=== PATIENT | female | born 1965 | race African-American/Black ===

== ENCOUNTER → 2016-07-05 | Outpatient (CLI) | payer OTHER ==
--- NOTE | 2016-07-05 11:13 | XR ---
Right shoulder HISTORY: Pain, limited range of motion 3 views of the right shoulder correlated to prior exam April 2016 Bone mineralization, joint spaces and alignment are stable, there is loss of joint space at the gleno humeral joint with marginal spurring, hypertrophic change. Right lung apex as visualized is normal. IMPRESSION: Osteoarthritic changes are suspected.
--- NOTE | 2016-07-05 11:15 | XR ---
Left knee HISTORY: Meniscus tear, pain 3 views of the left knee Comparison to prior left knee 21 January 2015 Bone mineralization, joint spaces and alignment are stable. Marginal hypertrophic change especially a t the patellofemoral joint. Joint effusion may be improved. Soft tissue calcifications may be vascula r. IMPRESSION: Stable exam, no acute abnormality. Suspect osteoarthritis.
== END ==
LOC: RADXRMAIN 10:05
PROVIDERS: ATTEND Physical Medicine & Rehabilitation
DX: M25.511 Pain in right shoulder (principal); M25.562 Pain in left knee

== ENCOUNTER 2019-01-23 17:44 | Emergency (ER) | payer OTHER ==
[2019-01-23] MEDS ORDERED: ACETAMINOPHEN TAB 500 MG TAB PO STA (18:09)
--- NOTE | 2019-01-23 18:13 | ED ---
Psych HPI - General Source: patient <Ekta Saavedra - Last Filed: 01/23/19 18:35> <Jacob Eng - Last Filed: 01/24/19 05:39> <Javi Da Silva - Last Filed: 01/29/19 17:00> - General Chief Complaint: Psychiatric Symptoms Stated Complaint: EPS eval Time Seen by Provider: 01/23/19 17:58 - History of Present Illness Initial Comments: 53-year-old female patient presents to the emergency department today for evaluation of suicidal ideation. Patient states that she has a history of depression. States that her mother in June and she has been hav ing a difficult time since. States that recently she has been feeling very depressed and crying frequently. Patient states that she has been having thoughts of killing herself. She states her plan is to take pills and go to sleep. Patient denies any recurrent alcohol use. States she did snort cocaine a couple of days ago. Patient states she does have a history of attempted suicide approximately 4 years ago she took an overdose of medication. States she has been inpatient at [facility] mental health. Patient states she is currently taking her antidepressants as prescribed. States she has not had a dose change in the last two years. States she does have a sore throat for the last couple of days. Denies nasal congestion or drainage. Denies cough. States her urine has been dark. Denies any dysuria or urinary frequency. Patient denies any recent rash, shortness breath, chest pain, abdominal pain, nausea, vomiting, diarrhea, constipation, back pain, numbness, tingling, dizziness, weakness, headache, visual changes, or any other complaints. (Ekta Saavedra) - Related Data Home Medications Medication Instructions Recorded Confirmed Albuterol Inhaler [Ventolin 1 - 2 puff INHALATION RT-QID PRN 01/21/15 01/23/19 Inhaler] cloNIDine HCL [Catapres] 0.2 mg PO TID 01/21/15 01/23/19 Cholecalciferol [Vitamin D3] 5,000 unit PO DAILY 01/20/16 01/23/19 Docusate [Colace] 100 mg PO BID PRN 04/12/16 01/23/19 Glimepiride [Amaryl] 4 mg PO DAILY 04/12/16 01/23/19 Brexpiprazole [Rexulti] 1 mg PO DAILY 01/23/19 01/23/19 Budesonide [Pulmicort Flexhaler] 2 puff INHALATION RT-BID 01/23/19 01/23/19 Buprenorphine HCl/Naloxone HCl 1 film SL DAILY 01/23/19 01/23/19 [Suboxone 8 mg-2 mg Sl Film] Gabapentin 600 mg PO BID 01/23/19 01/23/19 Losartan [Cozaar] 50 mg PO DAILY 01/23/19 01/23/19 Mirtazapine 45 mg PO HS 01/23/19 01/23/19 OXcarbazepine [Trileptal] 600 mg PO BID 01/23/19 01/23/19 Prazosin HCl 2 mg PO HS 01/23/19 01/23/19 diphenhydrAMINE HCL [Benadryl] 25 mg PO Q6H PRN 01/23/19 01/23/19 tiZANidine [Zanaflex] 2 mg PO TID PRN 01/23/19 01/23/19 Allergies Allergy/AdvReac Type Severity Reaction Status Date / Time celecoxib Allergy Unknown Verified 01/23/19 18:29 ciprofloxacin Allergy Unknown Verified 01/23/19 18:29 cyclobenzaprine Allergy Unknown Verified 01/23/19 18:29 fluoxetine Allergy Unknown Verified 01/23/19 18:29 fluoxetine HCl [From Prozac] Allergy Unknown Verified 01/23/19 18:29 ibuprofen Allergy Unknown Verified 01/23/19 18:29 ketorolac tromethamine Allergy Unknown Verified 01/23/19 18:29 [From Toradol] metformin Allergy Unknown Verified 01/23/19 18:29 Penicillins Allergy Unknown Verified 01/23/19 18:29 Review of Systems ROS Other: All systems not noted in ROS Statement are negative. <Ekta Saavedra - Last Filed: 01/23/19 18:35> ROS Other: All systems not noted in ROS Statement are negative. <Jacob Eng - Last Filed: 01/24/19 05:39> ROS Other: All systems not noted in ROS Statement are negative. <Javi Da Silva - Last Filed: 01/29/19 17:00> ROS Statement: Those systems with pertinent positive or pertinent negative responses have been documented in the HPI. Past Medical History Past Medical History: COPD, Diabetes Mellitus, Hypertension, Thyroid Disorder Additional Past Medical History / Comment(s): right shoulder pain History of Any Multi-Drug Resistant Organisms: None Reported Past Surgical History: Hysterectomy, Orthopedic Surgery, Tonsillectomy Past Psychological History: Bipolar, Depression Smoking Status: Current every day smoker Past Alcohol Use History: None Reported Past Drug Use History: Marijuana, Prescription Drug Abuse <Ekta Saavedra - Last Filed: 01/23/19 18:35> General Exam Limitations: no limitations General appearance: alert, in no apparent distress, other (This is a well-developed, well-nourished adult female patient in no acute distress. Vital signs upon presentation are temperature 100.8F, pulse 98, respirations 105, respirations 125/81, pulse ox 100% on room air.) Eye exam: Present: normal appearance, PERRL, EOMI. Absent: scleral icterus, conjunctival injection, periorbital swelling ENT exam: Present: mucous membranes moist. Absent: normal exam, normal oropharynx (Pharyngeal erythema) Neck exam: Present: normal inspection. Absent: tenderness, meningismus, lymphadenopathy Respiratory exam: Present: normal lung sounds bilaterally. Absent: respiratory distress, wheezes, rales, rhonchi, stridor Cardiovascular Exam: Present: regular rate, normal rhythm, normal heart sounds. Absent: systolic murmur, diastolic murmur, rubs, gallop, clicks GI/Abdominal exam: Present: soft, normal bowel sounds. Absent: distended, tenderness, guarding, rebound, rigid Neurological exam: Present: alert, oriented X3, CN II-XII intact Psychiatric exam: Present: normal affect, normal mood Skin exam: Present: warm, dry, intact, normal color. Absent: rash <Ekta Saavedra - Last Filed: 01/23/19 18:35> Course <Javi Da Silva - Last Filed: 01/29/19 17:00> Vital Signs 01/23/19 01/23/19 01/24/19 17:51 18:27 00:50 Temperature 100.8 F H 99.1 F 97.9 F Pulse Rate 98 75 88 Respiratory 105 H 18 18 Rate Blood Pressure 125/81 158/93 O2 Sat by Pulse 100 97 98 Oximetry 01/24/19 01/24/19 01/24/19 01:03 01:17 04:15 Temperature 98.1 F Pulse Rate 88 88 61 Respiratory 18 Rate Blood Pressure 190/89 O2 Sat by Pulse 95 Oximetry 01/24/19 01/24/19 01/24/19 05:41 07:12 08:12 Temperature 98 F 98 F Pulse Rate 69 69 Respiratory 18 18 Rate Blood Pressure 169/98 163/93 163/93 O2 Sat by Pulse 98 98 Oximetry - Reevaluation(s) Reevaluation #1: 01/29/19 17:00 Age was evaluated by psychiatric service and determined a risk she will be transferred (Javi Da Silva) Medical Decision Making - Lab Data Result diagrams: 01/24/19 00:48 01/24/19 00:48 - EKG Data -: EKG Interpreted by Id EKG shows normal: sinus rhythm, axis (Normal), intervals (Normal), QRS complexes (Normal) Rate: normal (Rate 62 bpm) Interpretation: nonspecific ST-T wave changes <Jacob Eng - Last Filed: 01/24/19 05:39> - Lab Data Result diagrams: 01/24/19 00:48 01/24/19 00:48 <Javi Da Silva - Last Filed: 01/29/19 17:00> - Lab Data Lab Results 01/23/19 01/23/19 01/24/19 Range/Units 18:33 18:33 00:48 WBC 6.5 (3.8-10.6) k/uL RBC 4.74 (3.80-5.40) m/uL Hgb 15.2 (11.4-16.0) gm/dL Hct 42.5 (34.0-46.0) % MCV 89.7 (80.0-100.0) fL MCH 32.0 (25.0-35.0) pg MCHC 35.6 (31.0-37.0) g/dL RDW 12.9 (11.5-15.5) % Plt Count 184 (150-450) k/uL Neutrophils % 46 % Lymphocytes % 43 % Monocytes % 5 % Eosinophils % 2 % Basophils % 1 % Neutrophils # 3.0 (1.3-7.7) k/uL Lymphocytes # 2.8 (1.0-4.8) k/uL Monocytes # 0.3 (0-1.0) k/uL Eosinophils # 0.2 (0-0.7) k/uL Basophils # 0.0 (0-0.2) k/uL Sodium (137-145) mmol/L Potassium (3.5-5.1) mmol/L Chloride (98-107) mmol/L Carbon Dioxide (22-30) mmol/L Anion Gap mmol/L BUN (7-17) mg/dL Creatinine (0.52-1.04) mg/dL Est GFR (CKD-EPI)AfAm (>60 ml/min/1.73 sqM) Est GFR (CKD-EPI)NonAf (>60 ml/min/1.73 sqM) Glucose (74-99) mg/dL Estimated Ave Glu mg/dL Hemoglobin A1c (4.0-6.0) % Calcium (8.4-10.2) mg/dL Total Bilirubin (0.2-1.3) mg/dL AST (14-36) U/L ALT (9-52) U/L Alkaline Phosphatase (38-126) U/L Total Protein (6.3-8.2) g/dL Albumin (3.5-5.0) g/dL Urine Color Dark Yellow Urine Appearance Clear (Clear) Urine pH 6.0 (5.0-8.0) Ur Specific Casey 1.027 (1.001-1.035) Urine Protein 1+ H (Negative) Urine Glucose (UA) Negative (Negative) Urine Ketones Trace H (Negative) Urine Blood Negative (Negative) Urine Nitrite Negative (Negative) Urine Bilirubin 1+ H (Negative) Urine Urobilinogen 8.0 (<2.0) mg/dL Ur Leukocyte Esterase Small H (Negative) Urine RBC <1 (0-5) /hpf Urine WBC 3 (0-5) /hpf Ur Squamous Epith Cells 4 (0-4) /hpf Urine Bacteria Rare H (None) /hpf Hyaline Casts 3 H (0-2) /lpf Urine Mucus Few H (None) /hpf Urine HCG, Qual Not Detected (Not Detectd) Urine Opiates Screen Not Detected (NotDetected) Ur Oxycodone Screen Not Detected (NotDetected) Urine Methadone Screen Not Detected (NotDetected) Ur Propoxyphene Screen Not Detected (NotDetected) Ur Barbiturates Screen Not Detected (NotDetected) U Tricyclic Antidepress Not Detected (NotDetected) Ur Phencyclidine Scrn Not Detected (NotDetected) Ur Amphetamines Screen Not Detected (NotDetected) U Methamphetamines Scrn Not Detected (NotDetected) U Benzodiazepines Scrn Not Detected (NotDetected) Urine Cocaine Screen Detected H (NotDetected) U Marijuana (THC) Screen Detected H (NotDetected) 01/24/19 01/24/19 Range/Units 00:48 00:48 WBC (3.8-10.6) k/uL RBC (3.80-5.40) m/uL Hgb (11.4-16.0) gm/dL Hct (34.0-46.0) % MCV (80.0-100.0) fL MCH (25.0-35.0) pg MCHC (31.0-37.0) g/dL RDW (11.5-15.5) % Plt Count (150-450) k/uL Neutrophils % % Lymphocytes % % Monocytes % % Eosinophils % % Basophils % % Neutrophils # (1.3-7.7) k/uL Lymphocytes # (1.0-4.8) k/uL Monocytes # (0-1.0) k/uL Eosinophils # (0-0.7) k/uL Basophils # (0-0.2) k/uL Sodium 135 L (137-145) mmol/L Potassium 3.5 (3.5-5.1) mmol/L Chloride 99 (98-107) mmol/L Carbon Dioxide 28 (22-30) mmol/L Anion Gap 8 mmol/L BUN 10 (7-17) mg/dL Creatinine 0.66 (0.52-1.04) mg/dL Est GFR (CKD-EPI)AfAm >90 (>60 ml/min/1.73 sqM) Est GFR (CKD-EPI)NonAf >90 (>60 ml/min/1.73 sqM) Glucose 84 (74-99) mg/dL Estimated Ave Glu mg/dL 126 Hemoglobin A1c 6.0 (4.0-6.0) % Calcium 9.7 (8.4-10.2) mg/dL Total Bilirubin 0.6 (0.2-1.3) mg/dL AST 44 H (14-36) U/L ALT 26 (9-52) U/L Alkaline Phosphatase 101 (38-126) U/L Total Protein 7.7 (6.3-8.2) g/dL Albumin 4.2 (3.5-5.0) g/dL Urine Color Urine Appearance (Clear) Urine pH (5.0-8.0) Ur Specific Casey (1.001-1.035) Urine Protein (Negative) Urine Glucose (UA) (Negative) Urine Ketones (Negative) Urine Blood (Negative) Urine Nitrite (Negative) Urine Bilirubin (Negative) Urine Urobilinogen (<2.0) mg/dL Ur Leukocyte Esterase (Negative) Urine RBC (0-5) /hpf Urine WBC (0-5) /hpf Ur Squamous Epith Cells (0-4) /hpf Urine Bacteria (None) /hpf Hyaline Casts (0-2) /lpf Urine Mucus (None) /hpf Urine HCG, Qual (Not Detectd) Urine Opiates Screen (NotDetected) Ur Oxycodone Screen (NotDetected) Urine Methadone Screen (NotDetected) Ur Propoxyphene Screen (NotDetected) Ur Barbiturates Screen (NotDetected) U Tricyclic Antidepress (NotDetected) Ur Phencyclidine Scrn (NotDetected) Ur Amphetamines Screen (NotDetected) U Methamphetamines Scrn (NotDetected) U Benzodiazepines Scrn (NotDetected) Urine Cocaine Screen (NotDetected) U Marijuana (THC) Screen (NotDetected) Disposition <Ekta Saavedra - Last Filed: 01/23/19 18:35> <Jacob Eng - Last Filed: 01/24/19 05:39> - Out of Hospital Transfer - Req. Specs Out of Hospital Transfer - Requested Specifics: Psychiatric Non-ICU <Javi Da Silva - Last Filed: 01/29/19 17:00> Clinical Impression: Depression, Suicidal ideation Disposition: TRANSFER TO PSYCH HOSP/UNIT Condition: Stable Referrals: [facility] [Primary Care Provider] - 1-2 days
[2019-01-23 18:32] VITALS: RESP 18
[2019-01-23 18:42] LABS: Appearance,Urine Clear (Clear); Bacteria,Urine Rare /hpf; Bilirubin,Urine 1+ (Negative); Blood,Urine Negative (Negative); Color,Urine Dark Yellow; Glucose,Urine (UA) Negative (Negative); Hyaline Casts,Urine 3 /lpf (0-2); Ketones,Urine Trace (Negative); Leukocyte Esterase,Urine Small (Negative); Mucus,Urine Few /hpf; Nitrite,Urine Negative (Negative); Protein,Urine 1+ (Negative); RBC,Urine <1 /hpf (0-5); Specific Gravity,Urine 1.027 (1.001-1.035); Squamous Epithelial Cell,Urine 4 /hpf (0-4); WBC,Urine 3 /hpf (0-5)
[2019-01-23 18:51] LABS: Amphetamine Screen,Urine Not Detected (NotDetected); Barbiturate Screen,Urine Not Detected (NotDetected); Benzodiazepines Screen,Urine Not Detected (NotDetected); Cocaine Screen,Urine Detected (NotDetected); Methadone Screen, Urine Not Detected (NotDetected); Opiate Screen,Urine Not Detected (NotDetected); Oxycodone Screen, Urine Not Detected (NotDetected); Phencyclidine Screen,Urine Not Detected (NotDetected); Tricyclic Antidepressant,Urine Not Detected (NotDetected); Urn Cannabinoid Scrn Detected (NotDetected)
[2019-01-24] MEDS ORDERED: IPRATROPIUM-ALBUTEROL 3 ML NEB INHALATION STA (00:31)
[2019-01-24 01:15] LABS: Basophils % (A) 1 %; Eosinophils # (A) 0.2 k/uL (0-0.7); Eosinophils % (A) 2 %; HCT 42.5 % (34.0-46.0); HGB 15.2 gm/dL (11.4-16.0); Lymphocytes # (A) 2.8 k/uL (1.0-4.8); Lymphocytes % (A) 43 %; MCHC 35.6 g/dL (31.0-37.0); MCV 89.7 fL (80.0-100.0); Mean Platelet Volume 6.8; Monocytes # (A) 0.3 k/uL (0-1.0); Monocytes % (A) 5 %; Neutrophils % (A) 46 %; Platelet Count 184 k/uL (150-450); RBC 4.74 m/uL (3.80-5.40); RDW 12.9 % (11.5-15.5); WBC 6.5 k/uL (3.8-10.6)
[2019-01-24 01:24] LABS: ALT 26 U/L (9-52); AST 44 U/L (14-36); African American GFR (CKD) >90 (>60 ml/min/1.73 sqM); Albumin 4.2 g/dL (3.5-5.0); Alkaline Phosphatase 101 U/L (38-126); Anion Gap 8 mmol/L; Blood Urea Nitrogen 10 mg/dL (7-17); Calcium 9.7 mg/dL (8.4-10.2); Carbon Dioxide 28 mmol/L (22-30); Chloride 99 mmol/L (98-107); Glucose 84 mg/dL (74-99); Potassium 3.5 mmol/L (3.5-5.1); Sodium 135 mmol/L (137-145); Total Bilirubin 0.6 mg/dL (0.2-1.3); Total Protein 7.7 g/dL (6.3-8.2)
[2019-01-24] MEDS ORDERED: cloNIDine HCL 0.2 MG TAB PO STA (05:28)
[2019-01-24 07:13] VITALS: BP 163/93; PULSE 69; TEMP 98
== END 2019-01-24 08:12 ==
LOC: EC 17:44
DX: F31.30 Bipolar disorder, current episode depressed, mild or moderate severity, unspecified (principal); R45.851 Suicidal ideations; J39.2 Other diseases of pharynx; J02.9 Acute pharyngitis, unspecified; R82.998 Other abnormal findings in urine; J44.9 Chronic obstructive pulmonary disease, unspecified; E11.9 Type 2 diabetes mellitus without complications; I10 Essential (primary) hypertension; F17.200 Nicotine dependence, unspecified, uncomplicated; Z88.0 Allergy status to penicillin; Z88.1 Allergy status to other antibiotic agents; Z88.6 Allergy status to analgesic agent; Z88.8 Allergy status to other drugs, medicaments and biological substances; Z79.51 Long term (current) use of inhaled steroids; Z79.84 Long term (current) use of oral hypoglycemic drugs; Z79.899 Other long term (current) drug therapy; Z90.89 Acquired absence of other organs; Z91.5 Personal history of self-harm
CPT/HCPCS: 36415; 80053; 80306; 81001; 81025; 82075; 83036; 85025; 93005; 94640; 99285

== ENCOUNTER → 2019-03-12 | Outpatient (CLI) | payer OTHER ==
[2019-03-12 15:27] LABS: HCT 42.5 % (34.0-46.0); HGB 14.3 gm/dL (11.4-16.0); MCH 31.6 pg (25.0-35.0); MCHC 33.7 g/dL (31.0-37.0); MCV 93.8 fL (80.0-100.0); Mean Platelet Volume 7.1; Platelet Count 173 k/uL (150-450); RBC 4.53 m/uL (3.80-5.40); RDW 12.8 % (11.5-15.5); WBC 5.2 k/uL (3.8-10.6)
[2019-03-12 19:59] LABS: Albumin 4.3 g/dL (3.80-4.90); Albumin/Globulin Ratio 1.72 (1.60-3.17); Bilirubin, Conjugated 0.2 mg/dL (0.20-0.40); Bilirubin,Unconjugated 0.2 mg/dL; Globulin 2.5 g/dL (1.6-3.3); Total Bilirubin 0.4 mg/dL (0.2-1.2); Total Protein 6.8 g/dL (6.2-8.2)
[2019-03-13 00:09] LABS: Hepatitis B Surface Antigen Non-Reactive (Non-Reactive); Hepatitis C IgG Antibody Reactive (Non-Reactive)
[2019-03-13 00:10] LABS: Hepatitis A Antibody IgM Non-Reactive (Non-Reactive); Hepatitis B Core IgM Non-Reactive (Non-Reactive)
[2019-03-14 14:57] LABS: Hepatits C Virus RNA DETECTED (Not detected); LOG HCV IU/mL 6.51 (<1.08)
== END | disposition home or self-care (01) ==
LOC: LABWHC1 14:33
PROVIDERS: ATTEND Physician Assistant
DX: B18.2 Chronic viral hepatitis C (principal)
CPT/HCPCS: 36415; 80074; 80076; 82565; 84520; 85027; 85610; 87522

== ENCOUNTER → 2019-03-13 | Outpatient (CLI) | payer OTHER ==
--- NOTE | 2019-03-13 10:40 | US ---
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 Chronic Hep C EXAM MEASUREMENTS: Liver Length: 15.6 cm Gallbladder Wall: 0.2 cm CBD: 0.6 cm Right Kidney: 11.3 x 3.9 x 5.3 cm Pancreas: 3mm duct visualized, tail obscured by overlying bowel gas Liver: wnl. Homogeneous hepatic echotexture. Gallbladder: wnl Evidence for sonographic Newman's sign: No CBD: wnl Right Kidney: wnl IMPRESSION: 1. Homogeneous hepatic echotexture despite the known hepatocellular disease. No focal mass is identif ied. 2. Main pancreatic duct is upper limits of normal measuring 0.3 cm. No priors available for compariso n. This can be on the basis of chronic pancreatitis, obstructing mass, or main branch IPMN. If there is further clinical concern MRCP could be considered.
== END | disposition home or self-care (01) ==
LOC: RADUSWWP 10:10
PROVIDERS: ATTEND Internal Medicine Gastroenterology
DX: K76.9 Liver disease, unspecified (principal); B18.2 Chronic viral hepatitis C; K86.1 Other chronic pancreatitis
CPT/HCPCS: 76705

== ENCOUNTER → 2019-10-01 | Outpatient (CLI) | payer OTHER ==
[2019-10-01 12:53] LABS: Basophils % (A) 1 %; Eosinophils # (A) 0.1 k/uL (0-0.7); Eosinophils % (A) 1 %; HCT 45.3 % (34.0-46.0); HGB 13.9 gm/dL (11.4-16.0); Lymphocytes # (A) 1.9 k/uL (1.0-4.8); Lymphocytes % (A) 39 %; MCH 29.7 pg (25.0-35.0); MCHC 30.6 g/dL (31.0-37.0); MCV 97.2 fL (80.0-100.0); Mean Platelet Volume 7.7; Monocytes # (A) 0.2 k/uL (0-1.0); Monocytes % (A) 5 %; Neutrophils # (A) 2.6 k/uL (1.3-7.7); Neutrophils % (A) 52 %; Platelet Count 172 k/uL (150-450); RBC 4.66 m/uL (3.80-5.40); RDW 12.8 % (11.5-15.5); WBC 5.1 k/uL (3.8-10.6)
[2019-10-01 19:17] LABS: Albumin 3.9 g/dL (3.80-4.90); Albumin/Globulin Ratio 1.34 (1.60-3.17); Bilirubin, Conjugated 0.2 mg/dL (0.20-0.40); Bilirubin,Unconjugated 0.1 mg/dL; Globulin 2.9 g/dL (1.6-3.3); Total Bilirubin 0.3 mg/dL (0.3-1.2); Total Protein 6.8 g/dL (6.2-8.2)
[2019-10-01 19:19] LABS: Chol/HDL Ratio 2.32; LDL Cholesterol,Calculated 72.2 mg/dL (0.0-131.0); Magnesium 1.6 mg/dL (1.5-2.4); VLDL Calculation 22.8 mg/dL (5.00-40.00)
[2019-10-01 19:26] LABS: African American GFR (CKD) 65.5 (60.0-200.0); Albumin/Globulin Ratio 1.43 (1.60-3.17); Anion Gap 2.3 mmol/L (4.00-12.00); Carbon Dioxide 31.7 mmol/L (21.6-31.8); Globulin 2.8 g/dL (1.6-3.3); Non-African American GFR(CKD) 56.5 (60.0-200.0); Potassium 4.2 mmol/L (3.5-5.5); Total Bilirubin 0.3 mg/dL (0.2-1.2); Total Protein 6.8 g/dL (6.2-8.2)
[2019-10-01 19:35] LABS: T4, Free (Free Thyroxine) 0.9 ng/dL (0.80-1.80)
[2019-10-01 21:05] LABS: Hemoglobin A1C 5.9 % (4.0-6.0)
== END | disposition home or self-care (01) ==
LOC: LABWHC1 10:56
PROVIDERS: ATTEND Nurse Practitioner Family
DX: B18.2 Chronic viral hepatitis C (principal); E11.69 Type 2 diabetes mellitus with other specified complication; I10 Essential (primary) hypertension; E07.9 Disorder of thyroid, unspecified
CPT/HCPCS: 36415; 80053; 80061; 80076; 82306; 82607; 83036; 83735; 84439; 84443; 85025; 87522

== ENCOUNTER → 2020-06-12 | Outpatient (CLI) | payer OTHER ==
[2020-06-12 20:08] LABS: Hemoglobin A1C 6.5 % (4.0-6.0)
[2020-06-12 20:14] LABS: ALT 10 U/L (8-44); AST 24 U/L (13-35); African American GFR (CKD) 65.5 (60.0-200.0); Albumin/Globulin Ratio 1.68 (1.60-3.17); Alkaline Phosphatase 72 U/L (41-126); BUN/Creat Ratio 8.18 Ratio (12.00-20.00); Bilirubin, Conjugated <0.20 mg/dL (0.20-0.40); Calcium 9.1 mg/dL (8.7-10.3); Carbon Dioxide 26.8 mmol/L (21.6-31.8); Chloride 104 mmol/L (96-109); Globulin 2.5 g/dL (1.6-3.3); Glucose 99 mg/dL (70-110); Non-African American GFR(CKD) 56.5 (60.0-200.0); Potassium 4.2 mmol/L (3.5-5.5); Sodium 141 mmol/L (135-145); Total Bilirubin 0.3 mg/dL (0.3-1.2); Total Protein 6.7 g/dL (6.2-8.2)
== END | disposition home or self-care (01) ==
LOC: LABWHC1 09:29
PROVIDERS: ATTEND Physician Assistant
DX: E11.8 Type 2 diabetes mellitus with unspecified complications (principal); B18.2 Chronic viral hepatitis C
CPT/HCPCS: 36415; 80053; 83036; 87522

== ENCOUNTER 2022-10-05 09:02 | Day surgery (SDC) | payer OTHER ==
[~2022-10-05 09:02] MED LIST: LACTATED RINGERS 1,000 ML IV SCH; LIDOCAINE 1% (10MG/ML) FOR IV START INTRADERMA PRN
[2022-10-05 09:41] VITALS: TEMP 98.1
[2022-10-05 09:46] LABS: Glucose,Whole Blood 120 mg/dL (70-110)
[2022-10-05] MEDS ORDERED: PROPOFOL 10 MG/ML 20 ML VIAL IV ONE (10:03)
--- NOTE | 2022-10-05 10:21 | P.PCN ---
Date of Procedure: 10/05/22 Procedure(s) Performed: BRIEF HISTORY: Patient is a 57-year-old [place] -[place] female scheduled for an elective colonoscopy as a part of screening for colon cancer. PROCEDURE PERFORMED: Colonoscopy. PREOPERATIVE DIAGNOSIS: Screening for colon cancer. IV sedation per Anesthesia. PROCEDURE: After informed consent was obtained, the patient, was brought into the endoscopy unit. IV sedation was administered by Anesthesia under continuous monitoring. Digital rectal examination was normal. Initially the Olympus CF-160 flexible video colonoscope was then inserted in the rectum, gradually advanced into the cecum without any difficulty. Careful examination was performed as the scope was gradually being withdrawn. Ileocecal valve and the appendiceal orifice were visualized and appeared normal. Prep was excellent. Mucosa of the cecum, ascending colon, transverse colon, descending colon, sigmoid colon, and rectum appeared normal. Scattered left-sided diverticulosis. Retroflexion was performed in the rectum and no lesions were seen. The patient tolerated the procedure well. IMPRESSION: Normal-appearing colon from rectum to cecum with no evidence of colorectal neoplasia . Scattered left-sided diverticulosis RECOMMENDATIONS: Findings of this examination were discussed with the patient as well as her family. She was advised to have a repeat screening colonoscopy in 10 years..
[2022-10-05 11:00] VITALS: BP 173/83; PULSE 59; RESP 20
== END 2022-10-05 11:13 | disposition home or self-care (01) ==
LOC: ORWHC2ENDO 09:02
PROVIDERS: ATTEND Internal Medicine Gastroenterology
DX: Z12.11 Encounter for screening for malignant neoplasm of colon (principal); K57.30 Diverticulosis of large intestine without perforation or abscess without bleeding; I10 Essential (primary) hypertension; J44.9 Chronic obstructive pulmonary disease, unspecified; F17.200 Nicotine dependence, unspecified, uncomplicated; F12.90 Cannabis use, unspecified, uncomplicated; E11.9 Type 2 diabetes mellitus without complications; E07.9 Disorder of thyroid, unspecified; Z79.890 Hormone replacement therapy; Z79.899 Other long term (current) drug therapy; Z79.84 Long term (current) use of oral hypoglycemic drugs; Z86.718 Personal history of other venous thrombosis and embolism; Z79.51 Long term (current) use of inhaled steroids; Z79.01 Long term (current) use of anticoagulants; Z88.8 Allergy status to other drugs, medicaments and biological substances
CPT/HCPCS: 45378; J2704

== ENCOUNTER 2024-10-25 00:19 | Inpatient (IN) | payer OTHER ==
[2024-10-25 00:52] LABS: Glucose,Whole Blood 105 mg/dL (70-110)
[2024-10-25 01:00] LABS: ABG Base Excess -0.2 mmol/L; ABG HCO3 27 mmol/L (21-25); ABG Oxygen Saturation 92.9 % (94-97); ABG PCO2 53 mmHg (35-45); ABG PH 7.31 (7.35-7.45); ABG PO2 68 mmHg (83-108); ABG TCO2 29 mmol/L (19-24); Allen Test Performed? Yes
--- NOTE | 2024-10-25 01:02 | ED ---
General Adult HPI - General Chief complaint: Altered Mental Status Stated complaint: AMS Time Seen by Provider: 10/25/24 00:35 Source: patient, EMS Mode of arrival: EMS Limitations: no limitations - History of Present Illness Initial comments: Patient is a 59-year-old female unknown past medical history presenting for altered mental status. History is limited given patient's altered mental status. Per EMS report, they were called to the patient's home by patient's family members for patient being confused since 3 AM yesterday. Reportedly she has not been sleeping since 3 AM. She is usually AO x 4 however now altered. No further history provided. - Related Data Home Medications Medication Instructions Recorded Confirmed Albuterol Inhaler [Ventolin Hfa 1 - 2 puff INHALATION RT-QID PRN 01/21/15 06/25/24 Inhaler] cloNIDine HCL [Catapres] 0.2 mg PO TID 01/21/15 06/25/24 Cholecalciferol [Vitamin D3 (25 5,000 unit PO DAILY 01/20/16 06/21/24 Mcg = 1000 Iu)] Docusate [Colace] 100 mg PO BID PRN 04/12/16 06/25/24 Buprenorphine HCl/Naloxone HCl 1 film SL DAILY 01/23/19 06/25/24 [Suboxone 8 mg-2 mg Sl Film] Losartan [Cozaar] 50 mg PO DAILY 01/23/19 06/25/24 Mirtazapine 45 mg PO HS 01/23/19 06/25/24 OXcarbazepine [Trileptal] 600 mg PO BID 01/23/19 06/25/24 Prazosin HCl 2 mg PO HS 01/23/19 06/25/24 tiZANidine [Zanaflex] 2 mg PO TID PRN 01/23/19 06/25/24 Aspirin [Zihlman Aspirin EC] 81 mg PO DAILY 06/21/24 06/25/24 Albuterol Nebulized [Ventolin 2.5 mg INHALATION Q6H 06/25/24 06/25/24 Nebulized] Amoxic-Pot Clav 500-125 mg 1 tab PO BID 06/25/24 06/25/24 [Augmentin 500-125 mg] Allergies Allergy/AdvReac Type Severity Reaction Status Date / Time celecoxib Allergy Unknown Verified 10/25/24 00:34 ciprofloxacin Allergy Unknown Verified 10/25/24 00:34 cyclobenzaprine Allergy Unknown Verified 10/25/24 00:34 fluoxetine Allergy Unknown Verified 10/25/24 00:34 fluoxetine HCl [From Prozac] Allergy Unknown Verified 10/25/24 00:34 ibuprofen Allergy Unknown Verified 10/25/24 00:34 ketorolac tromethamine Allergy Unknown Verified 10/25/24 00:34 [From Toradol] metformin Allergy Unknown Verified 10/25/24 00:34 Penicillins Allergy Nausea & Verified 10/25/24 00:34 Vomiting & Diarrhea sulfamethoxazole AdvReac Itching Verified 10/25/24 00:34 [From Bactrim] trimethoprim [From Bactrim] AdvReac Itching Verified 10/25/24 00:34 Review of Systems ROS Statement: Those systems with pertinent positive or pertinent negative responses have been documented in the HPI. ROS Other: All systems not noted in ROS Statement are negative. Past Medical History Past Medical History: COPD, Diabetes Mellitus, Deep Vein Thrombosis (DVT), Hypertension, Thyroid Disorder Additional Past Medical History / Comment(s): right shoulder pain, Type II DM History of Any Multi-Drug Resistant Organisms: None Reported Past Surgical History: Hysterectomy, Orthopedic Surgery, Tonsillectomy Past Anesthesia/Blood Transfusion Reactions: No Reported Reaction Past Psychological History: Bipolar, Depression Smoking Status: Current every day smoker General Exam - General Exam Comments Initial Comments: PE: CONSTITUTIONAL: In moderate distress, ill-appearing, drooling, rocking back and forth SKIN: Warm, dry, no jaundice, hives or petechiae EYES: Pupils are equally round, extraocular movements intact without nystagmus, clear conjunctiva, non-icteric sclera HENT: Normocephalic, atraumatic, moist mucus membranes, oropharynx clear without exudates clear nasal congestion present NECK: , Full range of motion, normal appearance PULMONARY: Rhonchi and crackles in the lower lung buckner, scant wheezes throughout all lung buckner, no accessory muscle use or stridor, somewhat decreas ed excursion CARDIOVASCULAR: Regular rate, rhythm, normal S1 and S2. No appreciated murmurs, rubs or gallops. Strong radial pulses with intact distal perfusion. 2+ bilateral lower extremity pitting edema GASTROINTESTINAL: Soft, active bowel sounds throughout, non-tender, non- distended, no palpable masses, no rebound or guarding. No hepatosplenomegaly MUSCULOSKELETAL: Extremities have no gross deformity, no edema, redness, or swelling. Bilateral 2+ lower extremity pitting edema NEUROLOGIC:_a/o x 0, GCS 13, confused mentation, mildly slurred speech, aphasia, repeats yes, yes, yes", able to give me her date of but not her name, moves bilateral upper extremities, no neglect, refuses to lift either of her lower extremities exam is limited by patient's ability to cooperate with exam, PSYCHIATRIC:_somewhat agitated and anxious, confused mentation Limitations: no limitations Course Vital Signs 10/25/24 10/25/24 10/25/24 00:26 04:34 05:02 Temperature 98.7 F Pulse Rate 89 98 97 Respiratory 17 15 Rate Blood Pressure 187/104 198/78 O2 Sat by Pulse 97 97 Oximetry 10/25/24 10/25/24 10/25/24 05:28 05:32 06:57 Temperature Pulse Rate 86 93 87 Respiratory 14 15 Rate Blood Pressure 151/83 O2 Sat by Pulse 100 97 Oximetry 10/25/24 07:31 Temperature Pulse Rate 77 Respiratory 20 Rate Blood Pressure 129/62 O2 Sat by Pulse 98 Oximetry EKG Findings - EKG Comments: EKG Findings:: Sinus rhythm, shortened FL interval, rate 93 bpm, FL interval 92 ms, QT/QTc within normal limits, no significant ST elevations or depressions, no arrhythmia Procedures - Central Line Placement Right Femoral Consent Obtained: emergent situation Patient Placed on Monitor/Pulse Ox: Yes MD Prep: mask, gown, gloves Central Line Prep: Povidone-Iodine 1%, sterile drapes applied Local Anesthesia Used: Lidocaine 1% Amount of Anesthesia Used (mls): 3 Ultrasound Used for Placement: Yes Central Line Lumen Inserted: triple Bloods Obtained for Lab: No Central Line Position: good blood return, all ports aspirated, flushed, capped, sutured in place with 2-0 silk Dressing Applied: Tegaderm Patient Tolerated Procedure: well Complications: none Medical Decision Making - Medical Decision Making Was pt. sent in by a medical professional or institution (, PA, ARCHITECT MANAGER, urgent care, hospital, or prison...) When possible be specific @ -No Did you speak to anyone other than the patient for history (EMS, parent, family, police, friend...)? What history was obtained from this source Yes spoke with pt's significant other, states pt has not been her normal self x3 days, yesterday at 3 AM became more confused, repetitive statements, insomnia. States pt may have taken extra doses of her medications or used illicit drugs, no history of strokes Did you review nursing and triage notes (agree or disagree)? Why? @ -I reviewed nursing and triage notes Were old charts reviewed (outside hosp., previous admission, EMS record, old EKG, old radiological studies, urgent care reports/EKG's, prison records)? Report findings @ -Medical records reviewed- Reviewed history physical from cardiology visit, was scanned in in June 2024, patient was seeing cardiology that time for follow-up regarding pulmonary hypertension and tricuspid regurgitation, states that patient had recently been admitted to the hospital for acute hypoxic respiratory failure with abnormal cardiac enzymes and an abnormal troponin. Reportedly she wondered underwent a stress test that appeared unremarkable. Per this medication list, patient was on laxative, buprenorphine, lisinopril, Onyx, lorazepam, her the Onyx was discontinued, discharge medication list included aspirin, buprenorphine, lisinopril, lorazepam, metoprolol, nicotine patch and a Ventolin inhaler. Differential Diagnosis (chest pain, altered mental status, abdominal pain women, abdominal pain men, vaginal bleeding, weakness, fever, dyspnea, syncope, headache, dizziness, GI bleed, back pain, seizure, CVA, palpatations, mental health, musculoskeletal)? @Differential Altered Mental Status: Hypoglycemia, DKA, hypercapnia, ETOH, overdose, trauma, myxedema coma, HTN encephalopathy, infection, encephalitis, psychosis, intercranial hemorrhage, hepatic encephalopathy, meningitis, CVA, this is not meant to be an all- inclusive list EKG interpreted by me (3pts min.). @ -As above X-rays interpreted by me (1pt min.). @Personally reviewed chest x-ray, appears to show cardiomegaly, no consolidations or pleural effusions, radiologist states no acute process I disagree with this interpretation CT interpreted by me (1pt min.). @Reviewed CT brain I see no evidence of hemorrhage or mass effect, reviewed CTA see no evidence of dissection or large vessel occlusion I agree with radiologist interpretation U/S interpreted by me (1pt. min.). @ -None done What testing was considered but not performed or refused? (CT, X-rays, U/S, labs)? Why? @ -None What meds were considered but not given or refused? Why? @ -None Did you discuss the management of the patient with other professionals (professionals i.e. , PA, ARCHITECT MANAGER, lab, RT, psych nurse, social service liaison, illustrator set, teacher, sustainability officer, director case)? Give summary @Case was discussed with Dr. Mckenzie, Stroke Team Andree Liao, recommend CT, CTA will continue to follow with imaging Was smoking cessation discussed for >3mins.? @ -No Was critical care preformed (if so, how long)? @Yes, 60 minutes Were there social determinants of health that impacted care today? How? (Homelessness, low income, unemployed, alcoholism, drug addiction, transportation, low edu. Level, literacy, decrease access to med. care, longterm, rehab)? @ -No Was there de-escalation of care discussed even if they declined (Discuss DNR or withdrawal of care, Hospice)? @ -No What co-morbidities impacted this encounter? (DM, HTN, Smoking, COPD, CAD, Cancer, CVA, ARF, Chemo, Hep., AIDS, mental health diagnosis, sleep apnea, morbid obesity)? @COPD, tricuspid regurgitation Was patient admitted / discharged? Hospital course, mention meds given and route, prescriptions, significant lab abnormalities, going to OR and other pertinent info. @ Admission- Patient is a 59-year-old female presenting today for altered mental status since 3 AM yesterday. History is limited by patient's altered mental status, no family currently at bedside. Reported by EMS confused and having insomnia since last night. No additional history. On arrival patient is significantly hypertensive with blood pressure 187/104. She is rocking back and forth, has large amount of clear nasal secretions, mild tachypnea, pulse ox 88% on room air, patient refuses to keep nasal cannula in place, she repeat yes" over and over again, she is able to tell me her date of but not her name. Intermittently able to follow commands. Initially appeared to be leaning to the right side however was able to straighten herself, and lift both her right and left arms when asked. She does not lift her lower extremities on either side. I highly suspect metabolic encephalopathy however given unknown past medical h istory and aphasia a stroke alert was called. Patient is outside the window for tenecteplase but is within 24 hours of her last known well. Workup will remain broad at this point, stroke order set was placed, additionally ordered TSH with reflex T4, ammonia level, UDS, troponin, BNP. DuoNeb was ordered out of concern for COPD exacerbation. She does have lower extremity edema as well as crackles in the bilateral lung her lung buckner consistent with possible CHF exacerbation or new onset CHF. Discussed with Dr. Mckenzie, agrees with plan of care. Did consider administration of hydralazine given hypertension on arrival however if patient's altered mental status secondary to CVA at this point would allow for permissive hypertension. If CT brain is negative for acute process, CTA negative for signs of ischemia will administer hydralazine. CT brain negative for acute process. CTA delayed due to difficulty obtaining an IV. I did attempt ultrasound-guided IV access. Without success. Patient's significant other arrived at bedside. States that she and him have a history of polysubstance abuse including crack cocaine use. They have been sober for 5 years however he states "I do not know if she got into anything or took extra medications". He is "she goes across the [place] a lot". Patient's significant other seems to think she may have taken extra doses of her home medications or used some type of illicit drugs. He states that her last known well was actually 3 days ago, since then she has been "going to sit on the porch and walking back into the living room and going to sit on the porch, but initially was hallucinating, pointing out the windows and looking at things without anything actually being there". Since 3 AM yesterday patient has been repetitively stated "yes" and has not slept. Given this new information patient is also outside the window for thrombectomy. Due to multiple IV access attempts without success a central line was placed. Arterial blood gas was drawn, out of concern for possible hypercapnic encephalopathy given history of COPD however pCO2 is only 53, they do not feel this minimal elevation in pCO2 is the cause of patient's altered mental status, additionally she is not a candidate for BiPAP at this time with her confusion, she is already attempting to remove her nasal cannula, we will transition her over to high flow given PO2 of 68, do suspect some component of hypoxemic encephalopathy. Additionally CKs ranged 89. BNP 6760, ordered 80 mg IV Lasix, TSH 10.40, free T40.67. I did consider myxedema coma on differential for patie nt's because of enteral status, she is not hypotensive, bradycardic or hypothermic. Did order IV T4 and hydrocortisone. Ammonia 36, lactulose was ordered. Troponin 0.081, I suspect this secondary demand ischemia given patient's degree of hypoxemia. Patient did require Versed to tolerate CTA. She required an additional dose as she continued to try to get out of bed and pull out her IV. On reassessment she is sleeping comfortably, vital signs are stable. Blood pressure 151/83. Patient will be admitted for acute metabolic encephalopathy. Case was discussed with Dr. Lauren, requested addition of D- dimer. This was added. Will follow and add CTA if indicated. Patient was admitted in stable condition. Undiagnosed new problem with uncertain prognosis? Yes Drug Therapy requiring intensive monitoring for toxicity (Heparin, Nitro, Insulin, Cardizem)? @ -No Were any procedures done? Yes, central line placement Diagnosis/symptom? Acute metabolic encephalopathy, acute new onset congestive heart failure, hypoxemic respiratory failure, hepatic encephalopathy Acute, or Chronic, or Acute on Chronic? @Acute Uncomplicated (without systemic symptoms) or Complicated (systemic symptoms)? @Complicated Side effects of treatment? @ -No Exacerbation, Progression, or Severe Exacerbation? @ -No Poses a threat to life or bodily function? How? (Chest pain, [place], [place], pneumonia, PE, COPD, DKA, ARF, appy, cholecystitis, CVA, Diverticulitis, Homicidal, Suicidal, threat to staff... and all critical care pts) @ -Yes - Lab Data Result diagrams: 10/25/24 02:56 10/25/24 01:52 Lab Results 10/25/24 10/25/24 10/25/24 Range/Units 00:50 00:51 01:52 WBC (4.50-10.00) 10*3/uL RBC (4.10-5.20) 10*6/uL Hgb (12.0-15.0) g/dL Hct (37.2-46.3) % MCV (80.0-97.0) fL MCH (27.0-32.0) pg MCHC (32.0-37.0) g/dL Plt Count (140-440) 10*3/uL MPV (9.5-12.2) fL Immature Gran % (Auto) % Neutrophils % % Lymphocytes % % Monocytes % % Eosinophils % % Basophils % % Immature Gran # (0.00-0.04) 10*3/uL Neutrophils # (1.80-7.70) 10*3/uL Lymphocytes # (0.90-5.00) 10*3/uL Monocytes # (0.20-1.00) 10*3/uL Eosinophils # (0.04-0.35) 10*3/uL Basophils # (0.00-0.10) 10*3/uL Immature Plt Fraction (1.1-6.1) % Sample Site rrad ABG pH 7.31 L (7.35-7.45) ABG pCO2 53 H (35-45) mmHg ABG pO2 68 L (83-108) mmHg ABG HCO3 27 H (21-25) mmol/L ABG Total CO2 29 H (19-24) mmol/L ABG O2 Saturation 92.9 L (94-97) % ABG Base Excess -0.2 mmol/L Cameron Test Yes Hemoglobin 13.9 (11.4-16.0) gm/dL FiO2 36 % Sodium 140 (137-145) mmol/L Potassium 4.4 (3.5-5.1) mmol/L Chloride 102 (98-107) mmol/L Carbon Dioxide 25 (22-30) mmol/L Anion Gap 13 mmol/L BUN 18 H (7-17) mg/dL Creatinine 0.71 (0.52-1.04) mg/dL Est GFR (CKD-EPI)AfAm >90 (>60 ml/min/1.73 sqM) Est GFR (CKD-EPI)NonAf >90 (>60 ml/min/1.73 sqM) Glucose 88 (74-99) mg/dL POC Glucose (mg/dL) 105 (70-110) mg/dL POC Glu Ingot Weigher ID Rhezie Emie Calcium 9.8 (8.4-10.2) mg/dL Magnesium 2.0 (1.6-2.3) mg/dL Total Bilirubin 0.8 (0.2-1.3) mg/dL AST 34 (14-36) U/L ALT 12 (4-34) U/L Alkaline Phosphatase 120 (38-126) U/L Ammonia (<30) umol/L Creatine Kinase 389 H (30-135) U/L Troponin I (0.000-0.034) ng/mL NT-Pro-B Natriuret Pep 6760 pg/mL Total Protein 8.4 H (6.3-8.2) g/dL Albumin 5.0 (3.5-5.0) g/dL TSH 10.400 H (0.465-4.680) mIU/L Free T4 0.67 L (0.78-2.19) ng/dL Serum Alcohol mg/dL Influenza Type A (PCR) (Not Detectd) Influenza Type B (PCR) (Not Detectd) RSV (PCR) (Not Detectd) SARS-CoV-2 (PCR) (Not Detectd) 10/25/24 10/25/24 10/25/24 Range/Units 02:56 02:56 02:56 WBC 7.84 (4.50-10.00) 10*3/uL RBC 4.52 (4.10-5.20) 10*6/uL Hgb 14.4 (12.0-15.0) g/dL Hct 43.7 (37.2-46.3) % MCV 96.7 (80.0-97.0) fL MCH 31.9 (27.0-32.0) pg MCHC 33.0 (32.0-37.0) g/dL Plt Count 148 (140-440) 10*3/uL MPV 9.3 L (9.5-12.2) fL Immature Gran % (Auto) 0.6 % Neutrophils % 77.0 % Lymphocytes % 15.2 % Monocytes % 6.5 % Eosinophils % 0.3 % Basophils % 0.4 % Immature Gran # 0.05 H (0.00-0.04) 10*3/uL Neutrophils # 6.04 (1.80-7.70) 10*3/uL Lymphocytes # 1.19 (0.90-5.00) 10*3/uL Monocytes # 0.51 (0.20-1.00) 10*3/uL Eosinophils # 0.02 L (0.04-0.35) 10*3/uL Basophils # 0.03 (0.00-0.10) 10*3/uL Immature Plt Fraction 2.6 (1.1-6.1) % Sample Site ABG pH (7.35-7.45) ABG pCO2 (35-45) mmHg ABG pO2 (83-108) mmHg ABG HCO3 (21-25) mmol/L ABG Total CO2 (19-24) mmol/L ABG O2 Saturation (94-97) % ABG Base Excess mmol/L Cameron Test Hemoglobin (11.4-16.0) gm/dL FiO2 % Sodium (137-145) mmol/L Potassium (3.5-5.1) mmol/L Chloride (98-107) mmol/L Carbon Dioxide (22-30) mmol/L Anion Gap mmol/L BUN (7-17) mg/dL Creatinine (0.52-1.04) mg/dL Est GFR (CKD-EPI)AfAm (>60 ml/min/1.73 sqM) Est GFR (CKD-EPI)NonAf (>60 ml/min/1.73 sqM) Glucose (74-99) mg/dL POC Glucose (mg/dL) (70-110) mg/dL POC Glu Ingot Weigher ID Calcium (8.4-10.2) mg/dL Magnesium (1.6-2.3) mg/dL Total Bilirubin (0.2-1.3) mg/dL AST (14-36) U/L ALT (4-34) U/L Alkaline Phosphatase (38-126) U/L Ammonia 36 H (<30) umol/L Creatine Kinase (30-135) U/L Troponin I 0.081 H* (0.000-0.034) ng/mL NT-Pro-B Natriuret Pep pg/mL Total Protein (6.3-8.2) g/dL Albumin (3.5-5.0) g/dL TSH (0.465-4.680) mIU/L Free T4 (0.78-2.19) ng/dL Serum Alcohol mg/dL Influenza Type A (PCR) (Not Detectd) Influenza Type B (PCR) (Not Detectd) RSV (PCR) (Not Detectd) SARS-CoV-2 (PCR) (Not Detectd) 10/25/24 10/25/24 Range/Units 02:56 03:53 WBC (4.50-10.00) 10*3/uL RBC (4.10-5.20) 10*6/uL Hgb (12.0-15.0) g/dL Hct (37.2-46.3) % MCV (80.0-97.0) fL MCH (27.0-32.0) pg MCHC (32.0-37.0) g/dL Plt Count (140-440) 10*3/uL MPV (9.5-12.2) fL Immature Gran % (Auto) % Neutrophils % % Lymphocytes % % Monocytes % % Eosinophils % % Basophils % % Immature Gran # (0.00-0.04) 10*3/uL Neutrophils # (1.80-7.70) 10*3/uL Lymphocytes # (0.90-5.00) 10*3/uL Monocytes # (0.20-1.00) 10*3/uL Eosinophils # (0.04-0.35) 10*3/uL Basophils # (0.00-0.10) 10*3/uL Immature Plt Fraction (1.1-6.1) % Sample Site ABG pH (7.35-7.45) ABG pCO2 (35-45) mmHg ABG pO2 (83-108) mmHg ABG HCO3 (21-25) mmol/L ABG Total CO2 (19-24) mmol/L ABG O2 Saturation (94-97) % ABG Base Excess mmol/L Cameron Test Hemoglobin (11.4-16.0) gm/dL FiO2 % Sodium (137-145) mmol/L Potassium (3.5-5.1) mmol/L Chloride (98-107) mmol/L Carbon Dioxide (22-30) mmol/L Anion Gap mmol/L BUN (7-17) mg/dL Creatinine (0.52-1.04) mg/dL Est GFR (CKD-EPI)AfAm (>60 ml/min/1.73 sqM) Est GFR (CKD-EPI)NonAf (>60 ml/min/1.73 sqM) Glucose (74-99) mg/dL POC Glucose (mg/dL) (70-110) mg/dL POC Glu Ingot Weigher ID Calcium (8.4-10.2) mg/dL Magnesium (1.6-2.3) mg/dL Total Bilirubin (0.2-1.3) mg/dL AST (14-36) U/L ALT (4-34) U/L Alkaline Phosphatase (38-126) U/L Ammonia (<30) umol/L Creatine Kinase (30-135) U/L Troponin I (0.000-0.034) ng/mL NT-Pro-B Natriuret Pep pg/mL Total Protein (6.3-8.2) g/dL Albumin (3.5-5.0) g/dL TSH (0.465-4.680) mIU/L Free T4 (0.78-2.19) ng/dL Serum Alcohol <10 mg/dL Influenza Type A (PCR) Not Detected (Not Detectd) Influenza Type B (PCR) Not Detected (Not Detectd) RSV (PCR) Not Detected (Not Detectd) SARS-CoV-2 (PCR) Not Detected (Not Detectd) Disposition Clinical Impression: Acute metabolic encephalopathy, Hypothyroid, New onset of congestive heart failure Disposition: ADMITTED IP TO THIS [facility] Condition: Stable
--- NOTE | 2024-10-25 01:39 | CT ---
EXAM: CT Head Without Intravenous Contrast CLINICAL HISTORY: ITS.REASON CT Reason: Neuro deficit, acute, stroke suspected TECHNIQUE: Axial computed tomography images of the head/brain without intravenous contrast. CTDI is 48.8 mGy and DLP is 1137.8 mGy-cm. This CT exam was performed using one or more of the following dose reduction techniques: automated exposure control, adjustment of the mA and/or kV according to patient size, and/or use of iterative reconstruction technique. COMPARISON: No relevant prior studies available. FINDINGS: Brain: Empty sella turcica. Normal parenchymal volume. Mild chronic small vessel ischemic change. Mejia-white matter differentiation maintained. No hemorrhage, mass effect, parenchymal edema, or midline shift. Ventricles: No hydrocephalus. Bones/joints: No acute fracture. Soft tissues: Unremarkable. Vasculature: Intracranial atherosclerosis. Sinuses: Unremarkable as visualized. Mastoid air cells: No significant mastoid effusion. IMPRESSION: No acute intracranial process.
[2024-10-25 02:49] LABS: ALT 12 U/L (4-34); AST 34 U/L (14-36); African American GFR (CKD) >90 (>60 ml/min/1.73 sqM); Alkaline Phosphatase 120 U/L (38-126); Anion Gap 13 mmol/L; Blood Urea Nitrogen 18 mg/dL (7-17); Calcium 9.8 mg/dL (8.4-10.2); Carbon Dioxide 25 mmol/L (22-30); Chloride 102 mmol/L (98-107); Creatine Kinase 389 U/L (30-135); Glucose 88 mg/dL (74-99); Non-African American GFR(CKD) >90 (>60 ml/min/1.73 sqM); Potassium 4.4 mmol/L (3.5-5.1); Sodium 140 mmol/L (137-145); Total Bilirubin 0.8 mg/dL (0.2-1.3); Total Protein 8.4 g/dL (6.3-8.2)
[2024-10-25 02:58] LABS: NT-Pro-B-Type Natriuretic Pept 6760 pg/mL
[2024-10-25 03:04] LABS: Basophils # (A) 0.03 10*3/uL (0.00-0.10); Basophils % (A) 0.4 %; Eosinophils # (A) 0.02 10*3/uL (0.04-0.35); Eosinophils % (A) 0.3 %; HCT 43.7 % (37.2-46.3); HGB 14.4 g/dL (12.0-15.0); Immature Platelet Fraction 2.6 % (1.1-6.1); Lymphocytes # (A) 1.19 10*3/uL (0.90-5.00); Lymphocytes % (A) 15.2 %; MCH 31.9 pg (27.0-32.0); MCV 96.7 fL (80.0-97.0); Mean Platelet Volume 9.3 fL (9.5-12.2); Monocytes # (A) 0.51 10*3/uL (0.20-1.00); Monocytes % (A) 6.5 %; Neutrophils # (A) 6.04 10*3/uL (1.80-7.70); Platelet Count 148 10*3/uL (140-440); RBC 4.52 10*6/uL (4.10-5.20); RDW 13.2 % (11.5-14.5); WBC 7.84 10*3/uL (4.50-10.00)
--- NOTE | 2024-10-25 03:12 | XR ---
EXAM: XR Chest, 1 View CLINICAL HISTORY: ITS.REASON XR Reason: altered mental status TECHNIQUE: Frontal view of the chest. COMPARISON: No relevant prior studies available. FINDINGS: Lungs: No consolidation. Pleural space: No significant pleural effusion. No pneumothorax. Heart: No cardiomegaly or pulmonary vascular congestion. Bones/joints: No acute fracture. No dislocation. IMPRESSION: No evidence of acute cardiopulmonary disease.
[2024-10-25 03:39] LABS: Influenza A Not Detected (Not Detectd); Influenza B Not Detected (Not Detectd); RSV Not Detected (Not Detectd)
[2024-10-25] MEDS: SODIUM CHLORIDE 0.9% 500 ML 500 ML IV STA (03:43)
[2024-10-25] MEDS: LORazepam 1 MG/0.5 ML VIAL IV STA ×2 (03:59→12:31)
[2024-10-25 04:39] LABS: T4, Free (Free Thyroxine) 0.67 ng/dL (0.78-2.19)
[2024-10-25] MEDS: ALBUTEROL NEBULIZED 2.5 MG/3 ML INHALATION STA (05:02)
[2024-10-25] MEDS: IPRATROPIUM 0.5 MG/2.5 ML NEBU INHALATION STA (05:02)
[2024-10-25] MEDS: methylPREDNISolone SOD SUCCI 125 MG/2 ML VIAL IV STA (05:03)
[2024-10-25] MEDS: hydrALAZINE HCL 20 MG/ML 1 ML VIAL IVP STA (05:03)
[2024-10-25] MEDS: AZITHROMYCIN 500 MG in SODIUM CHLORIDE 0.9% 250 ML IVPB STA (05:09)
--- NOTE | 2024-10-25 05:20 | CT ---
EXAM: CT Angiography Head With Intravenous Contrast CLINICAL HISTORY: ITS.REASON CT Reason: Neuro deficit, acute, stroke suspected TECHNIQUE: Axial computed tomographic angiography images of the head with intravenous contrast. CTDI is 9.3 mGy and DLP is 462.9 mGy-cm. This CT exam was performed using one or more of the following dose reduction techniques: automated exposure control, adjustment of the mA and/or kV according to patient size, and/or use of iterative reconstruction technique. MIP reconstructed images were created and reviewed. COMPARISON: No relevant prior studies available. FINDINGS: The dural venous sinuses are patent. Right internal carotid artery: No acute findings. Intracranial segment is patent with no significant stenosis. No aneurysm. Right anterior cerebral artery: Unremarkable. No occlusion or significant stenosis. No aneurysm. Right middle cerebral artery: Unremarkable. No occlusion or significant stenosis. No aneurysm. Right posterior cerebral artery: Unremarkable. No occlusion or significant stenosis. No aneurysm. Right vertebral artery: Unremarkable as visualized. Left internal carotid artery: No acute findings. Intracranial segment is patent with no significant stenosis. No aneurysm. Left anterior cerebral artery: Unremarkable. No occlusion or significant stenosis. No aneurysm. Left middle cerebral artery: Unremarkable. No occlusion or significant stenosis. No aneurysm. Left posterior cerebral artery: Unremarkable. No occlusion or significant stenosis. No aneurysm. Left vertebral artery: Unremarkable as visualized. Basilar artery: Unremarkable. No occlusion or significant stenosis. No aneurysm. IMPRESSION: Negative CT angiogram of the head. EXAM: CT Angiography Neck With Intravenous Contrast CLINICAL HISTORY: ITS.REASON CT Reason: Neuro deficit, acute, stroke suspected TECHNIQUE: Routine carotid CT angiography protocol was performed with intravenous contrast. NASCET criteria using the distal ICAs for comparison were used for evaluation of stenoses. This CT exam was performed using one or more of the following dose reduction techniques: automated exposure control, adjustment of the mA and/or kV according to patient size, and/or use of iterative reconstruction technique. MIP reconstructed images were created and reviewed. COMPARISON: None. FINDINGS: VASCULATURE: Right common carotid artery: Unremarkable. No occlusion or significant stenosis. No dissection. Right internal carotid artery: Unremarkable. Extracranial segment is patent with no occlusion or significant stenosis. No dissection. Right external carotid artery: Unremarkable. No occlusion. Right vertebral artery: Unremarkable. No occlusion or significant stenosis. No dissection. Left common carotid artery: Unremarkable. No occlusion or significant stenosis. No dissection. Left internal carotid artery: Unremarkable. Extracranial segment is patent with no occlusion or significant stenosis. No dissection. Left external carotid artery: Unremarkable. No occlusion. Left vertebral artery: Unremarkable. No occlusion or significant stenosis. No dissection. NECK: Bones/joints: Unremarkable. No acute fracture. Soft tissues: Prominent mediastinal and hilar lymph nodes. Prominent cervical lymph nodes. Lung apices: Bronchitis. CAROTID STENOSIS REFERENCE USING NASCET CRITERIA: % ICA stenosis = (1 - narrowest ICA diameter/diameter of distal cervical ICA) x 100. Mild - <50% stenosis. Moderate - 50-69% stenosis. Severe - 70-94% stenosis. Near occlusion - 95-99% stenosis. Occluded - 100% stenosis. IMPRESSION: Negative CTA neck. <MYCVCSECTION> Communications: 10/25/24 05:27 Verify Receipt Verified receipt with SHOBHA Mccoy for Dr. Edmond on 10/25 05:27 (-04:00)
[2024-10-25] MEDS: MIDAZOLAM 1 MG/ML 5 ML VIAL IV STA ×2 (05:23→05:51)
[2024-10-25] MEDS: FUROSEMIDE 10 MG/ML 10 ML VIAL IV STA (05:24)
[2024-10-25] MEDS ORDERED: ACETAMINOPHEN TAB 325 MG TAB PO PRN (05:34)
[2024-10-25] MEDS ORDERED: ALPRAZolam 0.25 MG TAB PO PRN (05:34)
[2024-10-25] MEDS ORDERED: ONDANSETRON 4 MG/2 ML VIAL IVP PRN (05:34)
[2024-10-25] MEDS ORDERED: NALOXONE 0.4 MG/ML 1 ML VIAL IV PRN (05:34)
[2024-10-25] MEDS: HYDROCORTISONE SUCCINATE 100 MG/2 ML VIAL IV STA (06:06)
[2024-10-25] MEDS: LEVOTHYROXINE IVP 100 MCG/5 ML VIAL IV ONE (06:10)
[2024-10-25 06:31] LABS: Appearance,Urine Clear (Clear); Bilirubin,Urine Negative (Negative); Blood,Urine Negative (Negative); Color,Urine Colorless; Glucose,Urine (UA) Negative (Negative); Ketones,Urine Negative (Negative); Leukocyte Esterase,Urine Negative (Negative); Nitrite,Urine Negative (Negative); Protein,Urine Negative (Negative); Specific Gravity,Urine 1.018 (1.001-1.035); Urobilinogen,Urine <2.0 mg/dL (<2.0)
[2024-10-25 06:52] LABS: Amphetamine Screen,Urine Not Detected (NotDetected); Barbiturate Screen,Urine Not Detected (NotDetected); Benzodiazepines Screen,Urine Not Detected (NotDetected); Cocaine Screen,Urine Not Detected (NotDetected); Methadone Screen, Urine Not Detected (NotDetected); Opiate Screen,Urine Not Detected (NotDetected); Oxycodone Screen, Urine Not Detected (NotDetected); Phencyclidine Screen,Urine Not Detected (NotDetected); Tricyclic Antidepressant,Urine Not Detected (NotDetected); Urn Cannabinoid Scrn Detected (NotDetected)
[2024-10-25 08:33] LABS: Partial Thromboplastin Time 21.3 sec (22.0-30.0); Prothrombin Time 11.2 sec (10.0-12.5)
[2024-10-25] MEDS: HALOPERIDOL LACTATE 5 MG/ML 1 ML VIAL IVP STA (09:59)
[2024-10-25] MEDS: LACTULOSE 20 GM/30 ML CUP PO ONE (11:24)
[2024-10-25 11:45] LABS: African American GFR (CKD) >90 (>60 ml/min/1.73 sqM); Anion Gap 9 mmol/L; Blood Urea Nitrogen 18 mg/dL (7-17); Carbon Dioxide 28 mmol/L (22-30); Chloride 104 mmol/L (98-107); Glucose 108 mg/dL (74-99); Non-African American GFR(CKD) >90 (>60 ml/min/1.73 sqM); Potassium 3.8 mmol/L (3.5-5.1); Sodium 141 mmol/L (137-145)
--- NOTE | 2024-10-25 12:45 | P.CRDCN ---
History of Present Illness Consult date: 10/25/24 Reason for Consult (text): Elevated troponin, CHF History of present illness: This is a 59-year-old female patient of Dr. Gao with past medical history of mild coronary artery disease, diabetes, hypertension, dyslipidemia, valvular heart disease with tricuspid regurgitation, pulmonary hypertension, tobacco use and dependence, COPD. Patient apparently came into the hospital as her noted that she was sleeping more not eating and drinking very much. Patient currently has a remote history of cocaine use. Currently patient is unable to provide any information as she is unresponsive. Patient apparently became very agitated and received Ativan, Haldol, Versed. Patient is also status post 1 dose of IV Lasix 80 mg, she has received IV levothyroxine 300 mcg, IV Solu- Medrol, IV Solu-Cortef, 500 cc IV fluid bolus. Blood pressure 113/73, heart rate in the 70s, pulse ox 100% on high flow nasal cannula 7 L. -EKG: Sinus rhythm with no acute ST-T wave changes. -Chest x-ray: No acute process. -CT brain: No acute process. -CTA head and neck: Negative. -Laboratory studies: Troponin 0.081, 0.068, 0.051, proBNP 4640. WBC 7.8, hemo globin 14.4. D-dimer 1.19. pH 7.31, FYA836, PO268, bicarb 27, CO2 29. TSH 10.4. Free T4 0.67. Drug screen positive for marijuana. Cepheid viral panel not detected. -Home cardiac medications according to office note dated 07/17/2024: Aspirin 81 mg daily, lisinopril 10 mg daily, metoprolol 12.5 mg twice daily. -Cardiac catheterization performed 06/25/2024 revealed mild CAD. -Echocardiogram performed 09/28/2023 revealed normal EF, moderate AR, severe TR, severe pulmonary hypertension. Review Of Systems: At the time of my exam: CONSTITUTIONAL: Denies fever or chills. HEENT: Denies blurred vision, vision changes, or eye pain. Denies hemoptysis CARDIOVASCULAR: Denies chest pain. Denies orthopnea. Denies PND. Denies palpitations RESPIRATORY: Denies shortness of breath. GASTROINTESTINAL: Denies abdominal pain. Denies nausea or vomiting. HEMATOLOGIC: Denies bleeding disorders. GENITOURINARY: Denies any blood in urine. SKIN: Denies puritis. Denies rash. Physical examination: Gen: This is a 59-year-old black female, in no respiratory distress VS: reviewed HEENT: Head is atraumatic, normocephalic. Pupils equal, round. Sclerae is anicteric. NECK: Supple. No JVD. LUNGS: Clear to auscultation. No wheezes or rhonchi. No intercostal retractions. HEART: Regular rate and rhythm. Systolic murmur. ABDOMEN: Soft No tenderness. EXTREMITIES: No pedal edema. No calf tenderness. NEUROLOGICAL: Patient is unresponsive. Assessment: No clinical evidence of CHF Elevated troponin of unclear significance Metabolic encephalopathy Abnormal TSH History of mild coronary artery disease on cardiac catheterization dated 06/25/2024 Diabetes Hypertension Dyslipidemia Moderate aortic regurgitation Severe tricuspid regurgitation Severe pulmonary hypertension Tobacco use COPD Plan: Patient is currently n.p.o. due to mental status Obtain 2-D echocardiogram and Doppler study to assess cardiac structure and function Further recommendations to follow based upon clinical course Thank you kindly for this consultation. Nurse practitioner note has been reviewed, I agree with documented findings and plan of care. Patient was seen and examined. Past Medical History Past Medical History: COPD, Diabetes Mellitus, Deep Vein Thrombosis (DVT), Hypertension, Thyroid Disorder Additional Past Medical History / Comment(s): right shoulder pain, Type II DM History of Any Multi-Drug Resistant Organisms: None Reported Past Surgical History: Hysterectomy, Orthopedic Surgery, Tonsillectomy Past Anesthesia/Blood Transfusion Reactions: No Reported Reaction Past Psychological History: Bipolar, Depression Smoking Status: Current every day smoker Medications and Allergies Home Medications Medication Instructions Recorded Confirmed Type Albuterol Inhaler [Ventolin Hfa 1 - 2 puff INHALATION RT-QID PRN 01/21/15 06/25/24 History Inhaler] cloNIDine HCL [Catapres] 0.2 mg PO TID 01/21/15 06/25/24 History Cholecalciferol [Vitamin D3 (25 5,000 unit PO DAILY 01/20/16 06/21/24 History Mcg = 1000 Iu)] Docusate [Colace] 100 mg PO BID PRN 04/12/16 06/25/24 History Buprenorphine HCl/Naloxone HCl 1 film SL DAILY 01/23/19 06/25/24 History [Suboxone 8 mg-2 mg Sl Film] Losartan [Cozaar] 50 mg PO DAILY 01/23/19 06/25/24 History Mirtazapine 45 mg PO HS 01/23/19 06/25/24 History OXcarbazepine [Trileptal] 600 mg PO BID 01/23/19 06/25/24 History Prazosin HCl 2 mg PO HS 01/23/19 06/25/24 History tiZANidine [Zanaflex] 2 mg PO TID PRN 01/23/19 06/25/24 History Aspirin [[place] Aspirin EC] 81 mg PO DAILY 06/21/24 06/25/24 History Albuterol Nebulized [Ventolin 2.5 mg INHALATION Q6H 06/25/24 06/25/24 History Nebulized] Amoxic-Pot Clav 500-125 mg 1 tab PO BID 06/25/24 06/25/24 History [Augmentin 500-125 mg] Allergies Allergy/AdvReac Type Severity Reaction Status Date / Time celecoxib Allergy Unknown Verified 10/25/24 00:34 ciprofloxacin Allergy Unknown Verified 10/25/24 00:34 cyclobenzaprine Allergy Unknown Verified 10/25/24 00:34 fluoxetine Allergy Unknown Verified 10/25/24 00:34 fluoxetine HCl [From Prozac] Allergy Unknown Verified 10/25/24 00:34 ibuprofen Allergy Unknown Verified 10/25/24 00:34 ketorolac tromethamine Allergy Unknown Verified 10/25/24 00:34 [From Toradol] metformin Allergy Unknown Verified 10/25/24 00:34 Penicillins Allergy Nausea & Verified 10/25/24 00:34 Vomiting & Diarrhea sulfamethoxazole AdvReac Itching Verified 10/25/24 00:34 [From Bactrim] trimethoprim [From Bactrim] AdvReac Itching Verified 10/25/24 00:34 Physical Exam Vitals: Vital Signs Temp Pulse Resp BP Pulse Ox 10/25/24 07:31 77 20 129/62 98 10/25/24 06:57 87 15 97 10/25/24 05:32 93 10/25/24 05:28 86 14 151/83 100 10/25/24 05:02 97 10/25/24 04:34 98 15 198/78 97 10/25/24 00:26 98.7 F 89 17 187/104 97 Intake and Output 10/24/24 10/25/2410/25/25 22:59 06:59 14:59 Other: Weight 70 kg Results 10/25/24 02:56 10/25/24 09:16 Cardiac Enzymes 10/25/24 10/25/24 10/25/24 Range/Units 01:52 02:56 05:50 AST 34 (14-36) U/L Troponin I 0.081 H* 0.068 H* (0.000-0.034) ng/mL CBC 10/25/24 Range/Units 02:56 WBC 7.84 (4.50-10.00) 10*3/uL RBC 4.52 (4.10-5.20) 10*6/uL Hgb 14.4 (12.0-15.0) g/dL Hct 43.7 (37.2-46.3) % Plt Count 148 (140-440) 10*3/uL Comprehensive Metabolic Panel 10/25/24 Range/Units 01:52 Sodium 140 (137-145) mmol/L Potassium 4.4 (3.5-5.1) mmol/L Chloride 102 (98-107) mmol/L Carbon Dioxide 25 (22-30) mmol/L BUN 18 H (7-17) mg/dL Creatinine 0.71 (0.52-1.04) mg/dL Glucose 88 (74-99) mg/dL Calcium 9.8 (8.4-10.2) mg/dL AST 34 (14-36) U/L ALT 12 (4-34) U/L Alkaline Phosphatase 120 (38-126) U/L Total Protein 8.4 H (6.3-8.2) g/dL Albumin 5.0 (3.5-5.0) g/dL Current Medications Generic Name Dose Route Start Last Admin Trade Name Freq PRN Reason Stop Dose Admin Acetaminophen 650 mg 10/25/24 05:34 Acetaminophen Tab 325 Mg Tab PO Q6HR PRN Mild Pain or Fever > 100.5 Alprazolam 0.25 mg 10/25/24 05:34 Alprazolam 0.25 Mg Tab PO Q6HR PRN Anxiety Heparin Sodium (Porcine) 5,000 unit 10/25/24 08:00 Heparin Sodium,Porcine 5,000 Unit/Ml 1 Ml Vial SQ Q8HR LIBERTAD Naloxone HCl 0.2 mg 10/25/24 05:34 Naloxone 0.4 Mg/Ml 1 Ml Vial IV Q2M PRN Opioid Reversal Ondansetron HCl 4 mg 10/25/24 05:34 Ondansetron 4 Mg/2 Ml Vial IVP Q8HR PRN Nausea And Vomiting Pantoprazole Sodium 40 mg 10/25/24 09:00 Pantoprazole 40 Mg/10 Ml Vial IV DAILY LIBERTAD Intake and Output 10/24/24 10/25/24 10/25/24 22:59 06:59 14:59 Other: Weight 70 kg 10/25/24 02:56 10/25/24 01:52
--- NOTE | 2024-10-25 13:00 | CT ---
EXAMINATION TYPE: CT angio chest DATE OF EXAM: 10/25/2024 12:48 PM COMPARISON: None CLINICAL INDICATION: Female, 59 years old with history of positive D-dimer; Positive D-dimer. TECHNIQUE/CONTRAST: CTA scan of the thorax is performed with IV Contrast, patient injected with 80 ml mL of Isovue 370, M IP images are created and reviewed these are created on a separate workstation.. CT DLP: 394.4 mGycm, Automated exposure control for dose reduction was used. FINDINGS: Lungs/Pleura: No evidence of focal consolidation, pleural effusion or pneumothorax. Mild to moderate centrilobular emphysema. Intralobular septal thickening. Airway: Large airways are patent. Heart: Size within normal limits. No significant coronary artery calcifications. Vasculature: There is no evidence for a filling defect within the pulmonary vasculature to suggest ac [place] pulmonary embolism. The pulmonary artery is of normal size. Mediastinum: No gross evidence of adenopathy. Musculoskeletal: Mild disc degeneration changes are present throughout the thoracolumbar spine second remberto to osteophyte formation and facet joint arthropathy. Soft Tissues/lymph nodes: Unremarkable. Lower neck: No significant findings. Upper Abdomen: No significant findings. IMPRESSION: 1. No evidence of pulmonary embolism. 2. There may be mild pulmonary edema. 3. [id number] emphysema. Follow up recommendations for incidental pulmonary nodules, if there are any, are per [employer] or [employer]. https://radiopaedia.org/articles/zmugwiypgm-[email or web address]?lang=us [facility], , 10/25/2024 12:58 PM
[2024-10-25] MEDS: PANTOPRAZOLE 40 MG/10 ML VIAL IV SCH (13:24)
[2024-10-25] MEDS: HEPARIN SODIUM,PORCINE 5,000 UNIT/ML 1 ML VIAL SQ SCH (13:24)
--- NOTE | 2024-10-25 13:38 | P.CNNES ---
History of Present Illness Consult date: 10/25/24 Requesting physician: Karissa Edmond Reason for Consult: encephalopathy History of Present Illness: This is a 59-year-old woman who presents emergency department because of altered mental status. History is obtained from medical record since patient was severely encephalopathic. According to the ED physician's note EMS was called to the patient's home by the patient's family because the patient was confused since 3 AM the prior to present the hospital. She is usually oriented x 4. It seems that the patient does not have any history of seizure or strokes per the medical record. Patient does have history of diabetes, hypertension, thyroid issues, COPD. Patient's nurse the patient required a lot of sedated this because of her agitation and restlessness and difficulty to cooperate for examination. She received Ativan just prior to seeing her. She also received Haldol. Some of the workup during this hospital visit consisted of: Is afebrile Blood pressure is in the 190s over 78. Troponin is 0.081 Ammonia is 36 TSH is 10.40 and the free T4 is 0.67 But gas is pCO2 is 53P O2 is 68 bicarb is 27 pH is 7.3 oxygen saturation is 92 Urine drug screen is positive for marijuana. Reviewed the rest of the lab workup And the head is reported as no acute intracranial process. I personally reviewed the CT and agree with report CT angiography of the head and neck is negative. Review of Systems Limited. Past Medical History Past Medical History: COPD, Diabetes Mellitus, Deep Vein Thrombosis (DVT), Hypertension, Thyroid Disorder Additional Past Medical History / Comment(s): right shoulder pain, Type II DM History of Any Multi-Drug Resistant Organisms: None Reported Past Surgical History: Hysterectomy, Orthopedic Surgery, Tonsillectomy Past Anesthesia/Blood Transfusion Reactions: No Reported Reaction Past Psychological History: Bipolar, Depression Smoking Status: Current every day smoker Medications and Allergies Home Medications Medication Instructions Recorded Confirmed Type Albuterol Inhaler [Ventolin Hfa 2 puff INHALATION RT-Q6H PRN 01/21/15 10/25/24 History Inhaler] cloNIDine HCL [Catapres] 0.2 mg PO TID 01/21/15 10/25/24 History Docusate [Colace] 100 mg PO BID PRN 04/12/16 10/25/24 History Buprenorphine HCl/Naloxone HCl 1.5 film SL BID 01/23/19 10/25/24 History [Suboxone 8 mg-2 mg Sl Film] OXcarbazepine [Trileptal] 600 mg PO BID 01/23/19 10/25/24 History Aspirin [[place] Aspirin EC] 81 mg PO DAILY 06/21/24 10/25/24 History Apixaban [Eliquis] 5 mg PO BID 10/25/24 10/25/24 History Brexpiprazole [Rexulti] 3 mg PO HS 10/25/24 10/25/24 History Budesonide/Formoterol Fumarate 2 puff INHALATION RT-BID 10/25/24 10/25/24 History [Symbicort 160-4.5 Mcg Inhaler] Cetirizine HCl [Zyrtec] 10 mg PO DAILY 10/25/24 10/25/24 History Ergocalciferol (Vitamin D2) 1,250 mcg PO Q7D 10/25/24 10/25/24 History [Drisdol (GEQ) 1,250 MCG (50,000 IU)] Famotidine [Pepcid] 20 mg PO BID 10/25/24 10/25/24 History Fluticasone/Umeclidin/Vilanter 1 puff INHALATION RT-BID 10/25/24 10/25/24 Hist ory [Trelegy Ellipta 100-62.5-25] Furosemide [Lasix] 40 mg PO DAILY 10/25/24 10/25/24 History Gabapentin [Neurontin] 300 mg PO BID PRN 10/25/24 10/25/24 History Ibuprofen [Motrin] 600 mg PO DAILY PRN 10/25/24 10/25/24 History Isosorbide Mononitrate ER [Imdur] 30 mg PO DAILY 10/25/24 10/25/24 History Levothyroxine Sodium [Synthroid] 75 mcg PO DAILY 10/25/24 10/25/24 History Loratadine [Claritin] 10 mg PO DAILY 10/25/24 10/25/24 History Losartan Potassium [Cozaar] 100 mg PO DAILY 10/25/24 10/25/24 History Metoprolol Tartrate [Lopressor] 25 mg PO BID 10/25/24 10/25/24 History Montelukast [Singulair] 10 mg PO DAILY 10/25/24 10/25/24 History Nicotine 14Mg/24Hr Patch [Habitrol 1 patch TRANSDERM DAILY 10/25/24 10/25/24 History 14Mg/24Hr Patch] OLANZapine [ZyPREXA] 10 mg PO DAILY 10/25/24 10/25/24 History Simvastatin [Zocor] 20 mg PO DAILY 10/25/24 10/25/24 History amLODIPine [Norvasc] 5 mg PO DAILY 10/25/24 10/25/24 History hydroCHLOROthiazide [Hydrodiuril] 50 mg PO DAILY 10/25/24 10/25/24 History tiZANidine HCL 4 mg PO BID PRN 10/25/24 10/25/24 History Allergies Allergy/AdvReac Type Severity Reaction Status Date / Time celecoxib Allergy Unknown Verified 10/25/24 00:34 ciprofloxacin Allergy Unknown Verified 10/25/24 00:34 cyclobenzaprine Allergy Unknown Verified 10/25/24 00:34 fluoxetine Allergy Unknown Verified 10/25/24 00:34 fluoxetine HCl [From Prozac] Allergy Unknown Verified 10/25/24 00:34 ibuprofen Allergy Unknown Verified 10/25/24 00:34 ketorolac tromethamine Allergy Unknown Verified 10/25/24 00:34 [From Toradol] metformin Allergy Unknown Verified 10/25/24 00:34 Penicillins Allergy Nausea & Verified 10/25/24 00:34 Vomiting & Diarrhea sulfamethoxazole AdvReac Itching Verified 10/25/24 00:34 [From Bactrim] trimethoprim [From Bactrim] AdvReac Itching Verified 10/25/24 00:34 Physical Examination - Vital Signs Vital Signs: Vital Signs Temp Pulse Resp BP Pulse Ox 10/25/24 12:11 78 16 113/63 100 10/25/24 11:08 78 18 119/66 100 10/25/24 07:31 77 20 129/62 98 10/25/24 06:57 87 15 97 10/25/24 05:32 93 10/25/24 05:28 86 14 151/83 100 10/25/24 05:02 97 10/25/24 04:34 98 15 198/78 97 10/25/24 00:26 98.7 F 89 17 187/104 97 Intake and Output 10/24/24 10/25/24 10/25/24 22:59 06:59 14:59 Other: Weight 70 kg General: Lying in bed and does not appear in acute distress. Neuro: Very limited because of her overall condition. She just received Ativan. Also early in morning received Haldol and Versed. Not responsive. I had to manually open eyes and primary gaze is midline. Pupils are round 2mm and reactive to light. Results - Laboratory Findings CBC and BMP: 10/25/24 02:56 10/25/24 09:16 Abnormal Lab Findings: Abnormal Labs 10/25/24 10/25/24 10/25/24 00:51 01:52 02:56 MPV 9.3 L Immature Gran # 0.05 H Eosinophils # 0.02 L APTT D-Dimer ABG pH 7.31 L ABG pCO2 53 H ABG pO2 68 L ABG HCO3 27 H ABG Total CO2 29 H ABG O2 Saturation 92.9 L BUN 18 H Glucose Ammonia Creatine Kinase 389 H Troponin I Total Protein 8.4 H TSH 10.400 H Free T4 0.67 L U Marijuana (THC) Screen 10/25/24 10/25/24 10/25/24 02:56 02:56 05:50 MPV Immature Gran # Eosinophils # APTT D-Dimer ABG pH ABG pCO2 ABG pO2 ABG HCO3 ABG Total CO2 ABG O2 Saturation BUN Glucose Ammonia 36 H Creatine Kinase Troponin I 0.081 H* 0.068 H* Total Protein TSH Free T4 U Marijuana (THC) Screen 10/25/24 10/25/24 10/25/24 05:59 07:29 09:16 MPV Immature Gran # Eosinophils # APTT 21.3 L D-Dimer 1.19 H ABG pH ABG pCO2 ABG pO2 ABG HCO3 ABG Total CO2 ABG O2 Saturation BUN Glucose Ammonia Creatine Kinase Troponin I 0.051 H* Total Protein TSH Free T4 U Marijuana (THC) Screen Detected H 10/25/24 09:16 MPV Immature Gran # Eosinophils # APTT D-Dimer ABG pH ABG pCO2 ABG pO2 ABG HCO3 ABG Total CO2 ABG O2 Saturation BUN 18 H Glucose 108 H Ammonia Creatine Kinase Troponin I Total Protein TSH Free T4 U Marijuana (THC) Screen Assessment and Plan Assessment: This is a 59 y/o woman with altered mental status. She has hypertension, abnormal thyroid, mildly elevated ammonia Altered mental status due to multifactorial: Due to abnormal thyroid (hypothyroidism), hypertensive encephalopathy metabolic encephalopathy,with mild elevated ammonemia. Exam limited because of sedation Hypertensive urgency Elevated troponin Mild elevated ammonemia Hypothyroidism Underlying history of diabetes mellitus History of hypertension History of COPD and History of thyroid disorder Plan: I ordered a routine EEG but I doubt this is seizure. Obtain MRI of the brain since the machine is down For the rest of the medical management department other specialist Cardiology is consulted Thank you for the consultation Time with Patient: Greater than 30
--- NOTE | 2024-10-25 18:56 | CA ---
Transthoracic Echo Report Name: Robert Gonzáles Age: 59 Gender: F : 1965 Exam Date: 10/25/2024 13:56 Exam Location: [facility] Ht (in): 68 Wt (lb): 154 Ordering Physician: Marleen Rosario Attending/Referring Phys: [id number], Marlene Stone Cutter Kasey Evans RDCS Procedure CPT: Indications: lvf, NSTEMI Cardiac Hx: Technical Quality: Good Contrast 1: Total Dose (mL): Contrast 2: Total Dose (mL): MEASUREMENTS (Male / Female) Normal Values 2D ECHO LV Diastolic Diameter PLAX 4.1 cm 4.2 - 5.9 / 3.9 - 5.3 cm LV Systolic Diameter PLAX 2.0 cm IVS Diastolic Thickness 1.1 cm 0.6 - 1.0 / 0.6 - 0.9 cm LVPW Diastolic Thickness 1.1 cm 0.6 - 1.0 / 0.6 - 0.9 cm LV Relative Wall Thickness 0.5 RV Internal Dim ED PLAX 2.3 cm LVOT Diameter 1.8 cm LA Systolic Diameter LX 4.0 cm 3.0 - 4.0 / 2.7 - 3.8 cm LV Diastolic Volume MOD BP 54.8 cm??? 67 - 155 / 56 - 104 cm??? LV Systolic Volume MOD BP 12.7 cm??? - 58 / 19 - 49 cm??? LV Ejection Fraction MOD BP 76.9 % >= 55 % LV Cardiac Index MOD BP 1606.7 cm???/min???m??? LV Diastolic Volume MOD 4C 54.2 cm??? LV Systolic Volume MOD 4C 9.6 cm??? LV Ejection Fraction MOD 4C 82.2 % LV Cardiac Index MOD 4C 1700.2 cm???/min???m??? LV Diastolic Length 4C 6.7 cm LV Systolic Length 4C 5.1 cm LV Diastolic Volume MOD 2C 54.7 cm??? LV Systolic Volume MOD 2C 16.9 cm??? LV Ejection Fraction MOD 2C 69.1 % LV Cardiac Index MOD 2C 1441.2 cm???/min???m??? LV Diastolic Length 2C 6.8 cm LV Systolic Length 2C 5.1 cm LA Volume 52.5 cm??? 18 - 58 / 22 - 52 cm??? LA Volume Index 28.6 cm???/m??? 16 - 28 cm???/m??? M-MODE Aortic Root Diameter MM 3.0 cm LA Systolic Diameter MM 4.0 cm LA Ao Ratio MM 1.3 AV Cusp Separation MM 1.9 cm DOPPLER AV Peak Velocity 179.4 cm/s AV Peak Gradient 12.9 mmHg AI Peak Velocity 321.0 cm/s AI Peak Gradient 41.2 mmHg AI Pressure Half Time 817.8 ms MV Area PHT 2.8 cm??? Mitral E Point Velocity 71.3 cm/s Mitral A Point Velocity 110.2 cm/s Mitral E to A Ratio 0.6 MV Deceleration Time 270.6 ms TR Peak Velocity 403.8 cm/s TR Peak Gradient 65.2 mmHg Right Ventricular Systolic Press 77.0 mmHg FINDINGS Left Ventricle Left ventricular ejection fraction is estimated at 65-70%. Mildly increased septal wall thickness. Mildly increased posterior wall thickness. No obvious regional wall motion abnormalities. Hyperdynamic left ventricular systolic function. Right Ventricle Mild right ventricular dilatation. Severe pulmonary hypertension. Right Atrium Mild right atrial dilatation. Left Atrium Moderate left atrial dilatation. Mitral Valve Structurally normal mitral valve. Mild mitral regurgitation. No mitral stenosis. Aortic Valve Trileaflet aortic valve. Mild aortic regurgitation. No aortic stenosis. Tricuspid Valve Structurally normal tricuspid valve. [id number] tricuspid regurgitation. No tricuspid stenosis. Pulmonic Valve Structurally normal pulmonic valve. Trace pulmonic regurgitation. No pulmonic stenosis. Pericardium Minimal pericardial effusion (normal variant). No pleural effusion. Aorta Normal size aortic root and proximal ascending aorta. CONCLUSIONS Hyperdynamic LV with and EF between 65 to 70% Previewed by: Dr. Elvin Gao MD (Electronically Signed) Final Date: 25 October 2024 18:55
[2024-10-25 21:29] LABS: Glucose,Whole Blood 75 mg/dL (70-110)
[2024-10-26 05:57] LABS: Glucose,Whole Blood 161 mg/dL (70-110)
[2024-10-26] MEDS: APIXABAN 5 MG TAB PO SCH (08:57)
[2024-10-26] MEDS: OLANZapine 10 MG TAB PO SCH (08:58)
--- NOTE | 2024-10-26 11:43 | P.PN ---
Subjective Progress Note Date: 10/26/24 I am following up with the patient and she hit the back of her head at home and unsure what transpired. She does not recall if she passed out. She denies any history of seizures. Currently she denies of any headache. Yesterday the outboard technician attempted to do the EEG but unsuccessful since the patient had sully. Objective - Vital Signs Vital signs: Vital Signs Temp 97.7 F 10/26/24 08:00 Pulse 106 H 10/26/24 08:00 Resp 20 10/26/24 08:00 BP 182/82 10/26/24 08:00 Pulse Ox 96 10/26/24 08:00 FiO2 Intake & Output 10/25/24 10/26/24 10/26/24 18:59 06:59 18:59 Intake Total 540 118 Balance 540 118 Weight 75.5 kg Intake: Oral 540 118 Other: Voiding Method Incontinent Incontinent External Catheter External Catheter # Voids 2 1 - Exam General: Lying in bed and is not in acute distress. Neuro: The patient is awake alert oriented to self place and she correctly stated she is in the hospital but she stated she is at [facility]. She is following simple commands appropriately. No aphasia. Pupils are 2 mm, round bilaterally and reactive to light. Visual buckner are full to confrontation. Extraocular moods intact no nystagmus. No facial weakness. No dysarthria Motor: Strength is 5 out of 5 throughout Sensation is normal to touch throughout. Some of the workup during this hospital visit consisted of: Is afebrile Blood pressure is in the 190s over 78. Troponin is 0.081 Ammonia is 36 TSH is 10.40 and the free T4 is 0.67 But gas is pCO2 is 53P O2 is 68 bicarb is 27 pH is 7.3 oxygen saturation is 92 Urine drug screen is positive for marijuana. Reviewed the rest of the lab workup CT the head is reported as no acute intracranial process. I personally reviewed the CT and agree with report CT angiography of the head and neck is negative. 2D echo: Hyperdynamic left ventricular with ejection fraction of 65 to 70%. - Labs CBC & Chem 7: 10/25/24 02:56 10/25/24 09:16 Labs: Abnormal Lab Results - Last 24 Hours (Table) 10/25/24 10/26/24 Range/Units 09:16 05:55 BUN 18 H (7-17) mg/dL Glucose 108 H (74-99) mg/dL POC Glucose (mg/dL) 161 H (70-110) mg/dL Assessment and Plan Assessment: This is a 59 y/o woman with altered mental status. She has hypertension, abnormal thyroid, mildly elevated ammonia Altered mental status due to multifactorial: Due to abnormal thyroid (hypothyroi dism), hypertensive encephalopathy metabolic encephalopathy,with mild elevated ammonemia--currently mentation is drastically better. Hypertensive urgency Elevated troponin Mild elevated ammonemia Hypothyroidism Underlying history of diabetes mellitus History of hypertension History of COPD and History of thyroid disorder Plan: EEG was attempted yesterday but unsuccessful since had sully. Will pursue with MRI Brain. For the rest of the medical management department other specialist Cardiology is consulted Dr. Sanchez will resume neurology service this Monday A.M. Time with Patient: Less than 30
[2024-10-26 11:48] LABS: Glucose,Whole Blood 90 mg/dL (70-110)
[2024-10-26] MEDS: LOSARTAN 50 MG TAB PO SCH (16:10)
[2024-10-26 17:02] LABS: Glucose,Whole Blood 240 mg/dL (70-110)
[2024-10-26] MEDS ORDERED: ISOSORBIDE MONONITRATE ER 30 MG TAB.ER.24H PO SCH (18:30)
[2024-10-26] MEDS ORDERED: carvediloL 6.25 MG TAB PO SCH (18:30)
[2024-10-26] MEDS ORDERED: hydroCHLOROthiazide 25 MG TAB PO SCH (18:30)
--- NOTE | 2024-10-26 18:31 | P.PN ---
Subjective Progress Note Date: 10/26/24 This is a 59-year-old female patient of Dr. Gao with past medical history of mild coronary artery disease, diabetes, hypertension, dyslipidemia, valvular heart disease with tricuspid regurgitation, pulmonary hypertension, tobacco use and dependence, COPD. Patient apparently came into the hospital as her noted that she was sleeping more not eating and drinking very much. Patient currently has a remote history of cocaine use. Currently patient is unable to provide any information as she is unresponsive. Patient apparently became very agitated and received Ativan, Haldol, Versed. Patient is also status post 1 dose of IV Lasix 80 mg, she has received IV levothyroxine 300 mcg, IV Solu-Med rol, IV Solu-Cortef, 500 cc IV fluid bolus. Blood pressure 113/73, heart rate in the 70s, pulse ox 100% on high flow nasal cannula 7 L. -EKG: Sinus rhythm with no acute ST-T wave changes. -Chest x-ray: No acute process. -CT brain: No acute process. -CTA head and neck: Negative. -Laboratory studies: Troponin 0.081, 0.068, 0.051, proBNP 4640. WBC 7.8, hemoglobin 14.4. D-dimer 1.19. pH 7.31, NHS282, PO268, bicarb 27, CO2 29. TSH 10.4. Free T4 0.67. Drug screen positive for marijuana. Cepheid viral panel not detected. -Home cardiac medications according to office note dated 07/17/2024: Aspirin 81 mg daily, lisinopril 10 mg daily, metoprolol 12.5 mg twice daily. -Cardiac catheterization performed 06/25/2024 revealed mild CAD. -Echocardiogram performed 09/28/2023 revealed normal EF, moderate AR, severe TR, severe pulmonary hypertension. Progress note 10/26/2024 BP 172/83, heart rate 86 BUN 18, creatinine 0.7 Echo shows EF 65 to 70% Hyperdynamic LV, no obvious regional wall motion abnormality, severe pulmonary hypertension with RVSP of 77 mmHg, moderate to severe tricuspid regurgitation, mild aortic regurgitation, mild mitral regurgitation Physical examination: Gen: This is a 59-year-old black female, in no respiratory distress VS: reviewed HEENT: Head is atraumatic, normocephalic. Pupils equal, round. Sclerae is anicteric. NECK: Supple. No JVD. LUNGS: Clear to auscultation. No wheezes or rhonchi. No intercostal retractions. HEART: Regular rate and rhythm. Systolic murmur. ABDOMEN: Soft No tenderness. EXTREMITIES: No pedal edema. No calf tenderness. NEUROLOGICAL: Patient is unresponsive. Assessment: No clinical evidence of CHF Elevated troponin, less likely ACS, related to poorly controlled hypertension Metabolic encephalopathy Abnormal TSH History of mild coronary artery disease on cardiac catheterization dated 06/25/2024 Diabetes Hypertension, poorly controlled Dyslipidemia Mild to Moderate aortic regurgitation Severe tricuspid regurgitation Severe pulmonary hypertension Tobacco use COPD Plan: Her home medication listed in cardiology office note from 06/2024 and current home medication list is very different. For some reason she is on Eliquis. I will hold her Eliquis for now unless there is a clearly documented reason for it I will continue aspirin 81 mg, Lipitor 40 mg, losartan 100 mg daily Will add amlodipine 5 mg daily. Add Coreg 3.125 mg twice daily. Add Farxiga 10 mg daily Will discontinue all other antihypertensives. Monitor blood pressure Objective - Vital Signs Vital signs: Vital Signs Temp 97.9 F 10/26/24 15:57 Pulse 86 10/26/24 15:57 Resp 20 10/26/24 15:57 BP 172/83 10/26/24 15:57 Pulse Ox 100 10/26/24 15:57 FiO2 Intake & Output 10/25/24 10/26/24 10/26/24 18:59 06:59 18:59 Intake Total 540 358 Balance 540 358 Weight 75.5 kg Intake: Oral 540 358 Other: Voiding Method Incontinent Incontinent External Catheter # Voids 2 1 - Labs CBC & Chem 7: 10/25/24 02:56 10/25/24 09:16 Labs: Abnormal Lab Results - Last 24 Hours (Table) 10/26/24 10/26/24 Range/Units 05:55 16:51 POC Glucose (mg/dL) 161 H 240 H (70-110) mg/dL Microbiology - Last 24 Hours (Table) 10/25/24 02:56 Blood Culture - Preliminary Blood
[2024-10-26] MEDS: ASPIRIN 81 MG PO SCH (18:39)
[2024-10-26] MEDS: DAPAGLIFLOZIN PROPANEDIOL 10 MG TABLET PO SCH (18:39)
[2024-10-26] MEDS: amLODIPine 5 MG TAB PO SCH (18:39)
[2024-10-26 20:07] LABS: Glucose,Whole Blood 165 mg/dL (70-110)
[2024-10-26] MEDS: ATORVASTATIN 40 MG TAB PO SCH (20:26)
[2024-10-26] MEDS: SYMBICORT 160-4.5 MCG INHALER INHALATION SCH (20:28)
[2024-10-27] MEDS: carvediloL 3.125 MG TAB PO SCH (05:52)
[2024-10-27 05:56] LABS: Glucose,Whole Blood 168 mg/dL (70-110)
[2024-10-27 12:09] LABS: Glucose,Whole Blood 143 mg/dL (70-110)
[2024-10-27 17:09] LABS: Glucose,Whole Blood 110 mg/dL (70-110)
[2024-10-27] MEDS: amLODIPine 5 MG TAB PO STA (17:51)
--- NOTE | 2024-10-27 18:45 | P.PN ---
Subjective Progress Note Date: 10/27/24 This is a 59-year-old female patient of Dr. Gao with past medical history of mild coronary artery disease, diabetes, hypertension, dyslipidemia, valvular heart disease with tricuspid regurgitation, pulmonary hypertension, tobacco use and dependence, COPD. Patient apparently came into the hospital as her noted that she was sleeping more not eating and drinking very much. Patient currently has a remote history of cocaine use. Currently patient is unable to provide any information as she is unresponsive. Patient apparently became very agitated and received Ativan, Haldol, Versed. Patient is also status post 1 dose of IV Lasix 80 mg, she has received IV levothyroxine 300 mcg, IV Solu-Med rol, IV Solu-Cortef, 500 cc IV fluid bolus. Blood pressure 113/73, heart rate in the 70s, pulse ox 100% on high flow nasal cannula 7 L. -EKG: Sinus rhythm with no acute ST-T wave changes. -Chest x-ray: No acute process. -CT brain: No acute process. -CTA head and neck: Negative. -Laboratory studies: Troponin 0.081, 0.068, 0.051, proBNP 4640. WBC 7.8, hemoglobin 14.4. D-dimer 1.19. pH 7.31, QZT784, PO268, bicarb 27, CO2 29. TSH 10.4. Free T4 0.67. Drug screen positive for marijuana. Cepheid viral panel not detected. -Home cardiac medications according to office note dated 07/17/2024: Aspirin 81 mg daily, lisinopril 10 mg daily, metoprolol 12.5 mg twice daily. -Cardiac catheterization performed 06/25/2024 revealed mild CAD. -Echocardiogram performed 09/28/2023 revealed normal EF, moderate AR, severe TR, severe pulmonary hypertension. Progress note 10/26/2024 BP 172/83, heart rate 86 BUN 18, creatinine 0.7 Echo shows EF 65 to 70% Hyperdynamic LV, no obvious regional wall motion abnormality, severe pulmonary hypertension with RVSP of 77 mmHg, moderate to severe tricuspid regurgitation, mild aortic regurgitation, mild mitral regurgitation 10/27/2024 BP 160/80, heart rate 84, denies any active chest pain chest pressure. Reports shortness of breath is improving. Appetite has improved, more oriented Physical examination: Gen: This is a 59-year-old black female, in no respiratory distress VS: reviewed HEENT: Head is atraumatic, normocephalic. Pupils equal, round. Sclerae is an icteric. NECK: Supple. No JVD. LUNGS: Clear to auscultation. No wheezes or rhonchi. No intercostal retractions. HEART: Regular rate and rhythm. Systolic murmur. ABDOMEN: Soft No tenderness. EXTREMITIES: No pedal edema. No calf tenderness. NEUROLOGICAL: Oriented to time place and person, no focal neurological deficits, detailed exam was not performed. Assessment: No clinical evidence of CHF Elevated troponin, less likely ACS, related to poorly controlled hypertension Metabolic encephalopathy Abnormal TSH History of mild coronary artery disease on cardiac catheterization dated 06/25/2024 Diabetes Hypertension, poorly controlled Dyslipidemia Mild to Moderate aortic regurgitation Severe tricuspid regurgitation Severe pulmonary hypertension Tobacco use COPD Plan: Her home medication listed in cardiology office note from 06/2024 and current home medication list is very different. For some reason she is on Eliquis. I will hold her Eliquis for now unless there is a clearly documented reason for it I will continue aspirin 81 mg, Lipitor 40 mg, losartan 100 mg daily Increase amlodipine to 10 mg, continue Coreg 3.125 mg twice daily. Continue Farxiga 10 mg daily Monitor blood pressure If still hypertensive will uptitrate Coreg. Objective - Vital Signs Vital signs: Vital Signs Temp 98.2 F 10/27/24 16:00 Pulse 84 10/27/24 16:00 Resp 20 10/27/24 16:00 BP 160/80 10/27/24 16:00 Pulse Ox 94 L 10/27/24 16:00 FiO2 Intake & Output 10/26/24 10/27/24 10/27/24 18:59 06:59 18:59 Intake Total 358 540 580 Output Total 1000 Balance 358 540 -420 Weight 75.5 kg Intake: Oral 358 540 580 Output: Urine 1000 Other: Voiding Method Incontinent Incontinent Bedside Commode # Voids 1 1 - Labs CBC & Chem 7: 10/25/24 02:56 10/25/24 09:16 Labs: Abnormal Lab Results - Last 24 Hours (Table) 10/26/24 10/27/24 10/27/24 Range/Units 20:06 05:55 12:00 POC Glucose (mg/dL) 165 H 168 H 143 H (70-110) mg/dL Microbiology - Last 24 Hours (Table) 10/25/24 02:56 Blood Culture - Preliminary Blood
[2024-10-27 19:57] LABS: Glucose,Whole Blood 156 mg/dL (70-110)
[2024-10-27 23:24] VITALS: RESP 18
--- NOTE | 2024-10-27 23:30 | HP ---
HISTORY AND PHYSICAL CHIEF COMPLAINT: Mental status changes. HISTORY OF PRESENT ILLNESS: This 59-year-old female has multiple problems, was brought to emergency room semi- comatose. There was a question as to what could have happened. Apparently, there is a history of possible seizure activity. Workup in the emergency room was noncontributory. REVIEW OF SYSTEMS: Unobtainable. Past Medical History, Family History, Personal and Social Histories reveal that she is not allergic to anything. MEDICATION: She is on 1. Gabapentin. 2. Aspirin. 3. TRELEGY. 4. Tizanidine. 5. Pepcid. 6. Ibuprofen. 7. Amlodipine. 8. Montelukast. 9. Olanzapine. 10.Losartan. 11.Loratadine. 12.Eliquis. 13.Clonidine. 14.Simvastatin. 15.Aspirin. 16.Lasix. 17.Suboxone. 18.Metoprolol. 19.Oxcarbazepine. 20.Hydrochlorothiazide. 21.Ventolin. 22.Rexulti. PHYSICAL EXAMINATION: VITAL SIGNS: Normal. HEAD, EARS, EYES, NOSE, MOUTH, AND THROAT: Unremarkable. CHEST: Clear. CARDIAC: Demonstrates sinus rhythm. ABDOMEN: Soft, nontender. EXTREMITIES: Normal. IMPRESSION: 1. Mental status changes with loss of consciousness. 2. Possible seizure activity with postictal depression. 3. History of coronary artery disease. PLAN: 1. Bedrest. 2. IV fluids. 3. Serial EKGs and enzymes. 4. Seizure precautions. 5. Consult with Neurology and Cardiology. MMODL / IJN: [id number] /
--- NOTE | 2024-10-27 23:51 | PN ---
PROGRESS NOTE DATE OF SERVICE: 10/25/2024 CHIEF COMPLAINT: Coma and mental status changes. HISTORY OF PRESENT ILLNESS: This lady is still quite lethargic. Etiology of this event is still not clear. LABORATORY STUDIES: Reveal CK of 389. BNP is 66,601, pulse ox is 68 and her CO2 is 53, pH is 7.31. Troponins were elevated. Her TSH is also slightly low. PHYSICAL EXAMINATION: VITAL SIGNS: Blood pressure is down from 187/104 down to 129/62. GENERAL: She is semi-alert now. CHEST: Clear. CARDIAC: Sinus. ABDOMEN: Soft, nontender. IMPRESSION: 1. Mental status changes. 2. Possible postictal depression. 3. Possible coronary artery event. 4. Possible arrhythmia. PLAN: Continue further support and workup with Neurology and Cardiology. MMODL / IJN: [id number] /
--- NOTE | 2024-10-28 | PN ---
PROGRESS NOTE DATE OF SERVICE: 10/26/2024 CHIEF COMPLAINT: Mental status changes. HISTORY OF PRESENT ILLNESS: This lady is starting to wake up. She has no focal neurologic deficits, headache, chest pain, etc. IMPRESSION: Mental status changes and encephalopathy, etiology unknown. PLAN: Start to progress activity and diet. Continue to monitor her neurologically and from the cardiovascular point of view as well. MMODL / IJN: [id number] /
--- NOTE | 2024-10-28 00:21 | PN ---
PROGRESS NOTE CHIEF COMPLAINT: Coma. HISTORY OF PRESENT ILLNESS: This lady is doing well. Activity is improving and her diet is being advanced. She has a slight headache and Tylenol was prescribed. PHYSICAL EXAMINATION: GENERAL: She is much more awake and alert. CHEST: Clear. CARDIAC: Normal. ABDOMEN: Soft and nontender. IMPRESSION: 1. Mental status changes. 2. Possible seizure. PLAN: Progress activity and diet and probably home soon. MMODL / IJN: [id number] /
[2024-10-28 05:57] LABS: Glucose,Whole Blood 100 mg/dL (70-110)
[2024-10-28] MEDS: amLODIPine 10 MG TAB PO SCH (08:40)
[2024-10-28] MEDS: carvediloL 3.125 MG TAB PO STA (09:52)
[2024-10-28 11:24] LABS: Glucose,Whole Blood 128 mg/dL (70-110)
--- NOTE | 2024-10-28 12:59 | P.PN ---
Subjective HISTORY OF PRESENT ILLNESS: This is a 59-year-old female patient of Dr. Gao with past medical history of mild coronary artery disease, diabetes, hypertension, dyslipidemia, valvular heart disease with tricuspid regurgitation, pulmonary hypertension, tobacco use and dependence, COPD. Patient apparently came into the hospital as her noted that she was sleeping more not eating and drinking very much. Patient currently has a remote history of cocaine use. Currently patient is unable to provide any information as she is unresponsive. Patient apparently became very agitated and received Ativan, Haldol, Versed. Patient is also status post 1 dose of IV Lasix 80 mg, she has received IV levothyroxine 300 mcg, IV Solu- Medrol, IV Solu-Cortef, 500 cc IV fluid bolus. Blood pressure 113/73, heart rate in the 70s, pulse ox 100% on high flow nasal cannula 7 L. -EKG: Sinus rhythm with no acute ST-T wave changes. -Chest x-ray: No acute process. -CT brain: No acute process. -CTA head and neck: Negative. -Laboratory studies: Troponin 0.081, 0.068, 0.051, proBNP 4640. WBC 7.8, hemoglobin 14.4. D-dimer 1.19. pH 7.31, IMH349, PO268, bicarb 27, CO2 29. TSH 10.4. Free T4 0.67. Drug screen positive for marijuana. Cepheid viral panel not detected. -Home cardiac medications according to office note dated 07/17/2024: Aspirin 81 mg daily, lisinopril 10 mg daily, metoprolol 12.5 mg twice daily. -Cardiac catheterization performed 06/25/2024 revealed mild CAD. -Echocardiogram performed 09/28/2023 revealed normal EF, moderate AR, severe TR, severe pulmonary hypertension. Progress note 10/26/2024 BP 172/83, heart rate 86 BUN 18, creatinine 0.7 Echo shows EF 65 to 70% Hyperdynamic LV, no obvious regional wall motion abnormality, severe pulmonary hypertension with RVSP of 77 mmHg, moderate to severe tricuspid regurgitation, mild aortic regurgitation, mild mitral regurgitation 10/27/2024 BP 160/80, heart rate 84, denies any active chest pain chest pressure. Reports shortness of breath is improving. Appetite has improved, more oriented 10/28/2024 Patient examined this morning at bedside. Patient denies chest pain or pressure. She denies shortness of breath. Blood pressure remains elevated with a systolic in the 160s. PHYSICAL EXAM: VITAL SIGNS: Reviewed. GENERAL: Well-developed in no acute distress. NECK: Supple. No JVD or thyromegaly LUNGS: Respirations even and unlabored. Lungs essentially clear to auscultation bilaterally. HEART: Regular rate and rhythm. S1 and S2 heard. EXTREMITIES: Normal range of motion. No clubbing or cyanosis. Peripheral pulses intact. No lower extremity edema ASSESSMENT: No clinical evidence of CHF Elevated troponin, of unclear clinical significance, less likely ACS, related to poorly controlled hypertension Metabolic encephalopathy Abnormal TSH History of mild coronary artery disease on cardiac catheterization dated 06/25/2024 Diabetes Hypertension, poorly controlled Dyslipidemia Mild to Moderate aortic regurgitation Severe tricuspid regurgitation Severe pulmonary hypertension Tobacco use COPD PLAN: Discontinue losartan. Begin valsartan 320 mg daily starting tomorrow Increase carvedilol to 6.25 mg twice a day Continue additional cardiac medications including amlodipine, aspirin, atorvastatin, Farxiga Continue to monitor blood pressure Patient is currently stable for discharge from a cardiac standpoint Nurse practitioner note has been reviewed by physician. Signing provider agrees with the documented findings, assessment, and plan of care documented by STAFF THERAPIST as a scribe. Objective - Vital Signs Vital signs: Vital Signs Temp 98.1 F 10/28/24 12:00 Pulse 79 10/28/24 12:00 Resp 18 10/28/24 12:00 BP 147/83 10/28/24 12:00 Pulse Ox 93 L 10/28/24 12:00 FiO2 Intake & Output 10/27/24 10/28/24 10/28/24 18:59 06:59 18:59 Intake Total 580 540 250 Output Total 1000 Balance -420 540 250 Weight 83.5 kg Intake: IV 10 Invasive Line 1 10 Oral 580 540 240 Output: Urine 1000 Other: Voiding Method Bedside Commode Bedside Commode Bedside Commode # Voids 1 2 - Labs CBC & Chem 7: 10/25/24 02:56 10/25/24 09:16 Labs: Abnormal Lab Results - Last 24 Hours (Table) 10/27/24 10/28/24 Range/Units 19:55 11:22 POC Glucose (mg/dL) 156 H 128 H (70-110) mg/dL Microbiology - Last 24 Hours (Table) 10/25/24 02:56 Blood Culture - Preliminary Blood
--- NOTE | 2024-10-28 13:06 | MR ---
INDICATION: Patient age:Female; 59 years old; Reason for study: acute encephalopathy unknown; PHH. COMPARISON: CT brain 10/25/2024, CTA head and neck 10/25/2024. TECHNIQUE: Multi planar, multi sequence imaging was performed through the brain. The patient was then given 8.5 cc of Gadobutrol intravenously and multi planar, T1 fat-saturation images were obtained. FINDINGS: The milligan-white junctions, ventricular system, basal cisterns appear unremarkable. Age-appropriate cer ebral parenchymal volume. Diffusion-weighted imaging shows no evidence of restricted diffusion to sug gest acute/subacute infarct. Intracranial arterial flow voids are maintained. Midline structures show no abnormality. Several scattered foci of high T2/FLAIR signal intensity are seen within the periven tricular and subcortical white matter. Approximately 15 foci identified. The susceptibility weighted images do not reveal any evidence for micro-hemorrhage. After administration of gadolinium, no abnorm al enhancement is seen. The bone marrow signal is within normal limits. The globes are unremarkable. Air-fluid level within the right maxillary sinus. IMPRESSION: 1. No evidence of intracranial mass, acute/subacute infarct, or abnormal enhancement. 2. Nonspecific nonenhancing mild white matter changes, likely related to small vessel ischemic diseas e. Demyelinating disease, chronic migraines, vasculitis, Lyme disease are other considerations. 3. Air-fluid level within the right maxillary sinus. Correlate clinically for acute sinusitis. [facility], , 10/28/2024 1:04 PM
--- NOTE | 2024-10-28 16:05 | P.PN ---
Subjective Progress Note Date: 10/28/24 Patient was initially seen by Dr. Fam Aceves. Please refer to his note for details. Patient is a 59-year-old female with altered mental status due to multifactorial reasons. It could be metabolic, hypertension, thyroid. Patient was seen for a follow-up. Patient is laying comfortably in the bed. Offers no complaints. She feels back to baseline. Patient states she has history of smoking half pack per day since age 11. Some of the workup during this hospital visit consisted of: Is afebrile Blood pressure is in the 190s over 78. Troponin is 0.081 Ammonia is 36 TSH is 10.40 and the free T4 is 0.67 Arterial blood gas is pCO2 is 53 PO2 is 68 bicarb is 27 pH is 7.3 oxygen saturation is 92 Urine drug screen is positive for marijuana. Reviewed the rest of the lab workup CT the head is reported as no acute intracranial process. I personally reviewed the CT and agree with report CT angiography of the head and neck is negative. 2D echo: Hyperdynamic left ventricular with ejection fraction of 65 to 70%. Objective - Vital Signs Vital signs: Vital Signs Temp 98.1 F 10/28/24 12:00 Pulse 79 10/28/24 12:00 Resp 18 10/28/24 12:00 BP 147/83 10/28/24 12:00 Pulse Ox 93 L 10/28/24 12:00 FiO2 Intake & Output 10/27/24 10/28/24 10/28/24 18:59 06:59 18:59 Intake Total 580 540 260 Output Total 1000 Balance -420 540 260 Weight 83.5 kg Intake: IV 20 Invasive Line 1 20 Oral 580 540 240 Output: Urine 1000 Other: Voiding Method Bedside Commode Bedside Commode Bedside Commode # Voids 1 2 - Exam Mental status, speech and language functions are normal. Patient knows it is 10/28/2024 and that she is in [facility] in [facility]. Cranial nerves are normal, visual buckner are full. Face is symmetric. Muscle strength is normal with no pronator drift. Sensation is normal. - Labs CBC & Chem 7: 10/25/24 02:56 10/25/24 09:16 Labs: Abnormal Lab Results - Last 24 Hours (Table) 10/27/24 10/28/24 Range/Units 19:55 11:22 POC Glucose (mg/dL) 156 H 128 H (70-110) mg/dL Microbiology - Last 24 Hours (Table) 10/25/24 02:56 Blood Culture - Preliminary Blood Assessment and Plan Assessment: This is a 59 y/o woman with altered mental status. She has hypertension, abnormal thyroid, mildly elevated ammonia and PCO2 Altered mental status due to multifactorial: Due to abnormal thyroid (hypothyroidism), hypertensive encephalopathy metabolic encephalopathy,with mild elevated ammonia--mentation back to normal. Hypertensive urgency Elevated troponin Mild elevated ammonemia Hypothyroidism Underlying history of diabetes mellitus, with last A1c 6.7 History of hypertension History of COPD and elevated pCO2 History of thyroid disorder Tobacco use. Plan: Patient's mentation is back to normal. EEG was attempted on Monday but unsuccessful since had sully. MRI of the brain with and without contrast revealed no evidence of intracranial mass, acute/subacute infarct or abnormal enhancement. Nonspecific, nonenhancing mild white matter changes, likely related to small vessel ischemic disease. Demyelinating disease, chronic migraines, vasculitis, Lyme disease or other consideration. Air-fluid level within the right maxillary sinus. Correlate clinically for acute sinusitis. I personally reviewed MRI, agree with the findings. I recommended checking for Lyme, and a repeat A1c, but patient declined. Her last A1c was 6.7 in 2023. For other medical management, will defer to IM and other specialties on board. Cardiology is consulted Recommend complete tobacco cessation. Neurologically clear for discharge.
[2024-10-28 16:14] LABS: Glucose,Whole Blood 154 mg/dL (70-110)
[2024-10-28 16:46] VITALS: BP 160/87; PULSE 85; TEMP 98.4
[2024-10-28] MEDS: carvediloL 6.25 MG TAB PO SCH (16:47)
[2024-10-29] MEDS ORDERED: VALSARTAN 160 MG TAB PO SCH (09:00)
--- NOTE | 2024-10-29 10:25 | DS ---
DISCHARGE SUMMARY CHIEF COMPLAINT: Mental status changes, encephalopathy. HISTORY OF PRESENT ILLNESS AND PHYSICAL EXAMINATION: Details of this lady's History and Physical can be found in the initial workup. LABORATORY STUDIES: While she is in the hospital, she had laboratory studies, details of which can be found in the laboratory section of her chart. COURSE IN THE HOSPITAL: After admission, she was placed on bedrest and started on intravenous fluids and frequent monitoring of her neurologic status and vital signs as well as her cardiac function because she had prior coronary artery problems. She gradually became more awake and alert. Etiology of this event was never fully determined, but her thought that she might have been postictal. She was improving and things were going well and it was felt that she could be discharged on the . She will be seen in the office in the next several days and further attention will be given to stabilizing her blood pressure. FINAL DIAGNOSES: 1. Mental status changes. 2. Possible postictal depression. 3. Hypertension. 4. Coronary artery disease. OPERATIONS: None. CONSULTATION: Cardiology. MMODL / IJN: [id number] /
== END 2024-10-28 19:20 | disposition left against medical advice (07) | DRG 52 ==
LOC: EC 00:19 → 3SCARD 05:35
PROVIDERS: ADMIT Family Medicine; ATTEND Family Medicine
PROC: 02HV33Z Insertion of Infusion Device into Superior Vena Cava, Percutaneous Approach (ICD-10-PCS; principal; 2024-10-25)
DX: G93.41 Metabolic encephalopathy (principal); J44.9 Chronic obstructive pulmonary disease, unspecified; E03.9 Hypothyroidism, unspecified; I67.4 Hypertensive encephalopathy; E72.20 Disorder of urea cycle metabolism, unspecified; I16.0 Hypertensive urgency; E11.9 Type 2 diabetes mellitus without complications; I25.10 Atherosclerotic heart disease of native coronary artery without angina pectoris; F44.5 Conversion disorder with seizures or convulsions; E78.5 Hyperlipidemia, unspecified; I08.2 Rheumatic disorders of both aortic and tricuspid valves; S09.90XA Unspecified injury of head, initial encounter; F31.9 Bipolar disorder, unspecified; I27.20 Pulmonary hypertension, unspecified; I10 Essential (primary) hypertension; J01.90 Acute sinusitis, unspecified; F17.210 Nicotine dependence, cigarettes, uncomplicated; Z79.899 Other long term (current) drug therapy; Z79.890 Hormone replacement therapy; Z79.82 Long term (current) use of aspirin; Z79.51 Long term (current) use of inhaled steroids; Z79.01 Long term (current) use of anticoagulants; Z86.718 Personal history of other venous thrombosis and embolism; Z88.0 Allergy status to penicillin; Z88.8 Allergy status to other drugs, medicaments and biological substances; Z88.6 Allergy status to analgesic agent; Z88.2 Allergy status to sulfonamides
CPT/HCPCS: 36415; 36556; 36600; 70450; 70496; 70498; 70553; 71045; 71275; 80048; 80053; 80306; 80320; 81003; 82140; 82550; 82805; 83735; 83880; 84439; 84443; 84484; 85025; 85379; 85610; 85730; 87040; 87636; 93005; 93306; 94640; 94760; 96361; 96365; 96367; 96372; 96375; 96376; 99291